=== PATIENT | male | born 1965 | race American Indian/Alaskan Native ===

== ENCOUNTER 2017-01-23 11:03 | Emergency (ER) | payer MEDICARE ==
[2017-01-23 11:29] VITALS: BP 115/73
--- NOTE | 2017-01-23 11:45 | Emergency Department Report ---
ED Lower Extremity HPI - General Chief Complaint: Extremity Injury, Lower Stated Complaint: FOOT SWOLLEN, CANNOT WALK Time Seen by Provider: 01/23/17 11:36 Source: patient Mode of arrival: Wheelchair Limitations: No Limitations - History of Present Illness MD Complaint: ankle injury, foot injury -: Sudden, During the night, Last night Injury: Ankle: Left Type of Injury: eversion Severity scale (0 -10): 8 Improves With: NSAID Worsens With: weight bearing, movement, palpation - Related Data Home Medications Medication Instructions Recorded Confirmed Last Taken Calcium Acetate [Calcium Acetate] 1 cap PO DAILY 02/07/14 04/01/14 12/22/13 Carvedilol [Coreg] 12.5 mg PO BID 02/12/14 04/01/14 03/31/14 10:00 Cholecalciferol (Vitamin D3) 1 cap PO BID 03/22/14 03/22/14 Unknown [Vitamin D] Sevelamer Carbonate [Renvela] 4 tab PO AC 03/22/14 03/22/14 Unknown cloNIDine [Catapres] 0.2 mg PO BID 03/22/14 04/01/14 03/31/14 22:00 Previous Rx's Medication Instructions Recorded Last Taken Type Acetaminophen/Codeine [Tylenol #3] 1 tab PO Q4HR PRN #30 tablet 04/01/14 Unknown Rx HYDROcodone/APAP 5-325 [[place] 1 each PO Q4HR PRN #12 tablet 01/23/17 Unknown Rx 5/325] Allergies Allergy/AdvReac Type Severity Reaction Status Date / Time No Known Allergies Allergy Verified 02/07/14 10:39 ED Review of Systems ROS: Stated complaint: FOOT SWOLLEN, CANNOT WALK Other details as noted in HPI Constitutional: denies: chills, fever Eyes: denies: eye pain, eye discharge, vision change ENT: denies: ear pain, throat pain Respiratory: denies: cough, shortness of breath, wheezing Cardiovascular: denies: chest pain, palpitations Endocrine: no symptoms reported Gastrointestinal: denies: abdominal pain, nausea, diarrhea Musculoskeletal: joint swelling, arthralgia. denies: back pain Skin: denies: rash, lesions Neurological: denies: headache, weakness Hematological/Lymphatic: denies: easy bruising ED Past Medical Hx - Past Medical History Previous Medical History?: Yes Hx Hypertension: Yes (4YRS) Hx Diabetes: Yes Hx GERD: Yes Hx Renal Disease: Yes (Tue, Thrus, Sat dialysis) Hx Asthma: No - Surgical History Past Surgical History?: Yes Additional Surgical History: Graft in arm, Appendix - Social History Smoking Status: Never Smoker Substance Use Type: None - Medications Home Medications: Home Medications Medication Instructions Recorded Confirmed Last Taken Type Calcium Acetate [Calcium Acetate] 1 cap PO DAILY 02/07/14 04/01/14 12/22/13 History Carvedilol [Coreg] 12.5 mg PO BID 02/12/14 04/01/14 03/31/14 10:00 History Cholecalciferol (Vitamin D3) 1 cap PO BID 03/22/14 03/22/14 Unknown History [Vitamin D] Sevelamer Carbonate [Renvela] 4 tab PO AC 03/22/14 03/22/14 Unknown History cloNIDine [Catapres] 0.2 mg PO BID 03/22/14 04/01/14 03/31/14 22:00 History Acetaminophen/Codeine [Tylenol #3] 1 tab PO Q4HR PRN #30 tablet 04/01/14 Unknown Rx HYDROcodone/APAP 5-325 [[place] 1 each PO Q4HR PRN #12 tablet 01/23/17 Unknown Rx 5/325] ED Physical Exam - General Limitations: No Limitations General appearance: alert, in no apparent distress - Head Head exam: Present: atraumatic, normocephalic - Eye Eye exam: Present: normal appearance - ENT ENT exam: Present: mucous membranes moist - Neck Neck exam: Present: normal inspection - Respiratory Respiratory exam: Present: normal lung sounds bilaterally. Absent: respiratory distress - Cardiovascular Cardiovascular Exam: Present: regular rate - Expanded Lower Extremity Exam Left Ankle exam: Present: tenderness, swelling, ecchymosis Foot/Toe exam: Absent: tenderness, swelling Neuro vascular tendon exam: Present: no vascular compromise. Absent: pulse deficit, abnormal cap refill Gait: Positive: observed and limited by pain 1 - tenderness, no swelling noted 2 - tenderness - Back Exam Back exam: Present: normal inspection - Neurological Exam Neurological exam: Present: alert, oriented X3 - Skin Skin exam: Present: warm, dry, intact ED Course Vital Signs 01/23/17 11:23 Temperature 98.7 F Pulse Rate 90 Respiratory 18 Rate Blood Pressure 115/73 O2 Sat by Pulse 100 Oximetry - Reevaluation(s) Reevaluation #1: 01/23/17 13:43 Patient ambulatory with walking boot. As a note, only 1 prescription of hydrocodone was dispensed to patient. Critical care attestation.: If time is entered above; I have spent that time in minutes in the direct care of this critically ill patient, excluding procedure time. ED Disposition Clinical Impression: Fracture of fifth metatarsal bone of left foot Disposition: DISCHARGED TO HOME OR SELFCARE Is pt being admited?: No Condition: Stable Instructions: Foot Fracture in Adults (ED) Prescriptions: HYDROcodone/APAP 5-325 [[place] 5/325] 1 each PO Q4HR PRN #12 tablet PRN Reason: Pain Referrals: BELLO JACOB MD [Primary Care Provider] - 3-5 Days MICHAEL LECHUGA MD [Staff Physician] - 3-5 Days
--- NOTE | 2017-01-23 12:13 | XRay Report ---
Left ankle 2 views: History: Injury and pain. Findings: No articular abnormality. No fracture or dislocation. Calcification of tibial vessels. Suspicion of fracture of the cuboid bone. Impression: Suspicion of fracture of the cuboid bone. Oblique radiographs recommended for further evaluation.
[2017-01-23] MEDS ORDERED: NORCO 5/325 PO ONE (12:15)
--- NOTE | 2017-01-23 12:45 | XRay Report ---
Oblique radiograph of the left ankle: Findings: There is fracture noted in the base of 5th metatarsal of left foot. There is also noted cortical irregularity of the articular surface of left cuboid suggestive incomplete fracture. Impression: Findings as detailed above.
== END 2017-01-23 13:52 | disposition home or self-care (01) ==
LOC: ED 11:03
DX: S92.352A Displaced fracture of fifth metatarsal bone, left foot, initial encounter for closed fracture (principal); X58.XXXA Exposure to other specified factors, initial encounter; Y93.9 Activity, unspecified; Y92.9 Unspecified place or not applicable; Y99.9 Unspecified external cause status; I10 Essential (primary) hypertension; E11.9 Type 2 diabetes mellitus without complications; K21.9 Gastro-esophageal reflux disease without esophagitis
CPT/HCPCS: 99283

== ENCOUNTER 2017-02-04 12:24 | Emergency (ER) | payer MEDICARE ==
[2017-02-04 13:38] VITALS: BP 150/84
--- NOTE | 2017-02-04 16:41 | Emergency Department Report ---
Entered by ALLEGRA HANSEN, acting as scribe for MARA SUBRAMANIAN PA. ED General Adult HPI - General Chief complaint: Extremity Injury, Lower Stated complaint: WRONG BOOT POST EMERGENCY VISIT Time Seen by Provider: 02/04/17 15:15 Source: patient Mode of arrival: Ambulatory Limitations: No Limitations - History of Present Illness Initial comments: 51 year old male presents to the ED today requesting to exchange walking boot for his left foot injury. Patient was seen in this ED on 01/23/2017 and diagnosed with fracture of fifth metatarsal bone of left foot. Patient reports he was seen by Dr. Linda Mccullough on 01/28/2017 and informed that he needed a walking boot, pneumatic, with or without joints, with or without interface material, prefabricated, includes fittings and adjustment ([id number]). Patient states Dr. Mccullough told patient boot could not be supplied during appointment because Medicare would not cover expense. Patient states Medicare told him to return to this ED and request to exchange boot. Patient reports pain to left foot but notes no acute changes. Denies fever, chills, abdominal pain, nausea, vomiting, chest pain, and shortness of breath. Location: left (foot pain) Consistency: constant Associated Symptoms: other (no acute changes to left foot). denies: chest pain , fever/chills, nausea/vomiting, shortness of breath - Related Data Home Medications Medication Instructions Recorded Confirmed Last Taken Calcium Acetate [Calcium Acetate] 1 cap PO DAILY 02/07/14 04/01/14 12/22/13 Carvedilol [Coreg] 12.5 mg PO BID 02/12/14 04/01/14 03/31/14 10:00 Cholecalciferol (Vitamin D3) 1 cap PO BID 03/22/14 03/22/14 Unknown [Vitamin D] Sevelamer Carbonate [Renvela] 4 tab PO AC 03/22/14 03/22/14 Unknown cloNIDine [Catapres] 0.2 mg PO BID 03/22/14 04/01/14 03/31/14 22:00 Previous Rx's Medication Instructions Recorded Last Taken Type Acetaminophen/Codeine [Tylenol #3] 1 tab PO Q4HR PRN #30 tablet 04/01/14 Unknown Rx HYDROcodone/APAP 5-325 [[place] 1 each PO Q4HR PRN #12 tablet 01/23/17 Unknown Rx 5/325] traMADol [Ultram 50 MG tab] 50 mg PO Q6HR PRN #20 tablet 02/04/17 Unknown Rx Allergies Allergy/AdvReac Type Severity Reaction Status Date / Time No Known Allergies Allergy Verified 02/07/14 10:39 ED Review of Systems Comment: All other systems reviewed and negative Constitutional: denies: chills, fever Respiratory: denies: shortness of breath Cardiovascular: denies: chest pain Gastrointestinal: denies: abdominal pain, nausea, vomiting Musculoskeletal: other (left small toe pain. No acute changes since last visit) ED Past Medical Hx - Past Medical History Hx Hypertension: Yes (4YRS) Hx Diabetes: Yes Hx GERD: Yes Hx Renal Disease: Yes (Tue, Thrus, Sat dialysis) Hx Asthma: No - Surgical History Additional Surgical History: Graft in arm, Appendix - Social History Smoking Status: Never Smoker Substance Use Type: None - Medications Home Medications: Home Medications Medication Instructions Recorded Confirmed Last Taken Type Calcium Acetate [Calcium Acetate] 1 cap PO DAILY 02/07/14 04/01/14 12/22/13 History Carvedilol [Coreg] 12.5 mg PO BID 02/12/14 04/01/14 03/31/14 10:00 History Cholecalciferol (Vitamin D3) 1 cap PO BID 03/22/14 03/22/14 Unknown History [Vitamin D] Sevelamer Carbonate [Renvela] 4 tab PO AC 03/22/14 03/22/14 Unknown History cloNIDine [Catapres] 0.2 mg PO BID 03/22/14 04/01/14 03/31/14 22:00 History Acetaminophen/Codeine [Tylenol #3] 1 tab PO Q4HR PRN #30 tablet 04/01/14 Unknown Rx HYDROcodone/APAP 5-325 [[place] 1 each PO Q4HR PRN #12 tablet 01/23/17 Unknown Rx 5/325] traMADol [Ultram 50 MG tab] 50 mg PO Q6HR PRN #20 tablet 02/04/17 Unknown Rx ED Physical Exam - General Limitations: No Limitations - Other Other exam information: GENERAL: The patient is well-developed and well-nourished. Patient is in NAD. HEAD: Normocephalic. Atraumatic. CHEST/LUNGS: Clear to auscultation throughout. HEART/CARDIOVASCULAR: Regular rate and rhythm. Positive for murmu ABDOMEN: Abdomen is soft, nontender. Bowel sounds normoactive. No guarding or rebound tenderness. LEFT FOOT: Tenderness to palpation of base of 5th metacarpal. No deformity, edema or echymosis noted. Normal sensation. Peripheral pulses intact. Capillary refill less than 2 seconds. NEURO: Alert and oriented x 3. ED Course Vital Signs 02/04/17 12:45 Temperature 98 F Pulse Rate 71 Respiratory 18 Rate Blood Pressure 150/84 O2 Sat by Pulse 100 Oximetry ED Medical Decision Making - Lab Data Vital Signs 02/04/17 12:45 Temperature 98 F Pulse Rate 71 Respiratory 18 Rate Blood Pressure 150/84 O2 Sat by Pulse 100 Oximetry - Medical Decision Making 51-year-old male presents today for a change in orthopedic boot post orthopedic follow-up. Patient was told by Dr. Mccullough that Medicare would not cover the second boot. Explained to patient that the plate ordered by Dr. Wilson is not available at this ER. Patient expressed understanding. Patient has been provided with a referral for Dr. Rai. Patient is in no acute distress at this time. He will be discharged home and is encouraged to follow up with a primary care provider. He will be sent home on tramadol and is encouraged to return to the emergency room for any worsening symptoms. ED Disposition Clinical Impression: Fracture of fifth metatarsal bone of left foot Qualifiers: Encounter type: subsequent encounter Fracture type: closed Fracture alignment: nondisplaced Fracture healing: with routine healing Qualified Code(s): S92.355D - Nondisplaced fracture of fifth metatarsal bone, left foot, subsequent encounter for fracture with routine healing Disposition: DISCHARGED TO HOME OR SELFCARE Is pt being admited?: No Does the pt Need Aspirin: No Condition: Stable Instructions: Toe Fracture (ED) Additional Instructions: Follow-up with primary care provider and orthopedic. Return to the emergency department if symptoms worsen. Prescriptions: traMADol [Ultram 50 MG tab] 50 mg PO Q6HR PRN #20 tablet PRN Reason: Pain Referrals: PRIMARY MD ALVARO [Primary Care Provider] - 3-5 Days KIMBERLY RAI MD [Staff Physician] - 3-5 Days Forms: Work/School Release Form(ED) Time of Disposition: 16:39 This documentation as recorded by the JADE paul REBEKAH,accurately reflects the service I personally performed and the decisions made by ,MARA SUBRAMANIAN PA.
== END 2017-02-04 16:47 | disposition home or self-care (01) ==
LOC: ED 12:24
DX: S92.355D Nondisplaced fracture of fifth metatarsal bone, left foot, subsequent encounter for fracture with routine healing (principal); I10 Essential (primary) hypertension; E11.9 Type 2 diabetes mellitus without complications; K21.9 Gastro-esophageal reflux disease without esophagitis; X58.XXXD Exposure to other specified factors, subsequent encounter
CPT/HCPCS: 99282

== ENCOUNTER 2017-08-01 18:18 | Emergency (ER) | payer MEDICARE ==
[2017-08-01 19:02] LABS: Albumin 4.2 g/dL (3.9-5); Albumin/Globulin Ratio 1.1 %; Bilirubin,Total 0.5 mg/dL (0.1-1.2); Calcium 9.6 mg/dL (8.4-10.2)
[2017-08-01 19:03] LABS: Chloride 92.5 mmol/L (98-107); Potassium 5.5 mmol/L (3.6-5.0)
[2017-08-01] MEDS ORDERED: CATAPRES PO ONE (22:15)
[2017-08-01] MEDS ORDERED: CATAPRES ONE (22:17)
--- NOTE | 2017-08-02 03:58 | ED Elopement Review ---
ED Pt Elopement review - Results review Lab results: Laboratory Tests 08/01/17 Unknown Sodium 139 Potassium 5.5 H Chloride 92.5 L Carbon Dioxide 30 Anion Gap 22 BUN 69 H Creatinine 13.1 H Estimated GFR 5 BUN/Creatinine Ratio 5 Glucose 104 H Calcium 9.6 Total Bilirubin 0.50 AST 19 ALT 26 Alkaline Phosphatase 98 Total Protein 8.0 Albumin 4.2 Albumin/Globulin Ratio 1.1 Patient has mild elevation of potassium preferred to giving Kayexalate and patient has elevated blood pressure unchanged after clonidine. EKG does show some peaked T waves. As per triage staff Patient left the ED department prior to evaluation and plans to go to his dialysis today. His elevated blood pressure and potassium are likely to improve with his scheduled dialysis. Shoulder x-ray reviewed and no fracture noted - Call Back decision Pt Call Back Decision: No action required
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
[2017-08-02 11:26] VITALS: BP 203/104
== END 2017-08-02 03:40 | disposition left against medical advice (07) ==
LOC: ED 18:18
DX: M25.512 Pain in left shoulder (principal); Z53.21 Procedure and treatment not carried out due to patient leaving prior to being seen by health care provider
CPT/HCPCS: 36415; 80048; 80053; 93005; 93010

== ENCOUNTER 2017-08-02 11:51 | Emergency (ER) | payer OTHER, MEDICARE ==
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
[2017-08-02 15:57] LABS: Calcium 9.8 mg/dL (8.4-10.2); Potassium 4.8 mmol/L (3.6-5.0)
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
[2017-08-02 18:00] VITALS: BP 128/80
== END 2017-08-02 17:56 | disposition home or self-care (01) ==
LOC: ED 11:51
DX: S46.912A Strain of unspecified muscle, fascia and tendon at shoulder and upper arm level, left arm, initial encounter (principal); I10 Essential (primary) hypertension; E11.9 Type 2 diabetes mellitus without complications; K21.9 Gastro-esophageal reflux disease without esophagitis; N28.9 Disorder of kidney and ureter, unspecified; V43.52XA Car driver injured in collision with other type car in traffic accident, initial encounter; Y93.9 Activity, unspecified; Y99.9 Unspecified external cause status; Y92.410 Unspecified street and highway as the place of occurrence of the external cause
CPT/HCPCS: 36415; 80048; 93005; 93010; 99283

== ENCOUNTER 2019-05-22 01:42 | Inpatient (IN) | payer MEDICARE ==
[2019-05-22 02:53] LABS: Basophils % (Auto) 0.4 % (0.0-1.8); Eosinophils % (Auto) 0.3 % (0.0-4.3); Hemoglobin 12.8 gm/dl (11.8-15.2); Lymphocytes # (Auto) 1.3 K/mm3 (1.2-5.4); Lymphocytes % (Auto) 11.2 % (13.4-35.0); Mean Corpuscular HGB Conc 33 % (32-34); Mean Corpuscular Volume 98 fl (84-94); Monocytes # (Auto) 1.2 K/mm3 (0.0-0.8); Monocytes % (Auto) 10.2 % (0.0-7.3); Platelet Count 203 K/mm3 (140-440); Red Blood Count 3.98 M/mm3 (3.65-5.03); Red Cell Distribution Width 16.5 % (13.2-15.2)
[2019-05-22 03:03] LABS: INR 1.08 (0.87-1.13)
[2019-05-22 03:18] LABS: Albumin 3.8 g/dL (3.9-5)
--- NOTE | 2019-05-22 03:47 | XRay Report ---
RIGHT KNEE 3 VIEWS INDICATION / CLINICAL INFORMATION: fall with leg pain. COMPARISON: None available. FINDINGS: Vascular calcification. No other significant abnormality. Signer Name: Akhil Gibbs MD FACChing Signed: 05/22/2019 3:43 AM Workstation Name: [id number]
--- NOTE | 2019-05-22 03:48 | XRay Report ---
RIGHT HIP 2 VIEWS INDICATION / CLINICAL INFORMATION: fall with leg pain. COMPARISON: None available. FINDINGS: No significant skeletal abnormality. Signer Name: Akhil Gibbs MD FACR Signed: 05/22/2019 3:43 AM Workstation Name: [employer]
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
[2019-05-22] MEDS ORDERED: PERCOCET 5/325 PO ONE (03:56)
[2019-05-22] MEDS ORDERED: PERCOCET 5/325 ONE (03:57)
--- NOTE | 2019-05-22 05:04 | Emergency Department Report ---
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 Patient states while ambulating his left leg felt like he gave out causing him to fall injuring his right ankle and foot. Patient complains of pain from his hip all the way down to his right foot. This pain has been making it difficult for him to ambulate he fell 2 more times due to inability to put pressure on the right leg. Patient denies headache, chest pain, shortness of breath, nausea, vomiting, diaphoresis, back pain, or abdominal pain. He states he is scheduled for surgery of the "valve of his left leg" in May. Patient takes aspirin and Plavix but does not take any other blood thinners. - Related Data Home Medications Medication Instructions Recorded Confirmed Last Taken No Known Home Medications [No 12/05/18 12/05/18 Unknown Reported Home Medications] Allergies Allergy/AdvReac Type Severity Reaction Status Date / Time No Known Allergies Allergy Verified 02/07/14 10:39 ED Review of Systems ROS: Stated complaint: WEAKNESS,FALL/RT FOOT PAIN Other details as noted in HPI Comment: All other systems reviewed and negative ED Past Medical Hx - Past Medical History Previous Medical History?: Yes Hx Hypertension: Yes Hx Heart Attack/AMI: No Hx Diabetes: Yes Hx GERD: Yes Hx Renal Disease: Yes (Tue, Thrus, Sat dialysis) Hx Asthma: No Additional medical history: Aortic Stenosis. hear murmur. PAD - Surgical History Past Surgical History?: Yes Hx Coronary Stent: Yes (X1) Hx Cholecystectomy: Yes Additional Surgical History: Graft in arm, Appendix - Social History Smoking Status: Never Smoker Substance Use Type: None - Medications Home Medications: Home Medications Medication Instructions Recorded Confirmed Last Taken Type No Known Home Medications [No 12/05/18 12/05/18 Unknown History Reported Home Medications] ED Physical Exam - General Limitations: No Limitations - Other Other exam information: General: No limitations, patient is alert in no acute distress Head exam: Atraumatic, normocephalic Eyes exam: Normal appearance ENT: Moist mucous membrane Neck exam: Normal inspection, full range of motion, no meningismus nontender Respiratory exam: Clear to auscultation bilateral, no wheezes, rales, crackles Cardiovascular: Normal rate and rhythm, normal heart sounds Abdomen: Soft, nondistended, and nontender, with normal bowel sounds, no rebound, or guarding Extremity: Patient has palpable DP pulses bilaterally. Full range of motion of left leg without weakness, numbness, or pain. Patient has pain with movement of right leg greatest at the ankle and toes. Tenderness to medial lateral ankle. Abrasion noted to anterior right knee. No pain to palpation of the hip. Back: Normal Inspection, full range of motion, no tenderness Neurologic: Alert, oriented x3, cranial nerves intact, no motor or sensory deficit Psychiatric: normal affect, normal mood Skin: Warm, dry, intact ED Course Vital Signs 05/22/19 05/22/19 01:56 02:45 Temperature 98.6 F Pulse Rate 85 Respiratory 10 L 10 L Rate Blood Pressure 115/52 O2 Sat by Pulse 96 96 Oximetry - Consultations Consultation #1: 05/22/19 05:12 Dr Dayan vasques for sunshine, states LBBB can occur after valve replacement ED Medical Decision Making - Lab Data Result diagrams: 05/22/19 02:26 05/22/19 02:29 Lab Results 05/22/19 05/22/19 05/22/19 Range/Units 02:26 02:29 02:29 WBC 12.0 H (4.5-11.0) K/mm3 RBC 3.98 (3.65-5.03) M/mm3 Hgb 12.8 (11.8-15.2) gm/dl Hct 39.0 (35.5-45.6) % MCV 98 H (84-94) fl MCH 32 (28-32) pg MCHC 33 (32-34) % RDW 16.5 H (13.2-15.2) % Plt Count 203 (140-440) K/mm3 Lymph % (Auto) 11.2 L (13.4-35.0) % [place] % (Auto) 10.2 H (0.0-7.3) % Eos % (Auto) 0.3 (0.0-4.3) % Baso % (Auto) 0.4 (0.0-1.8) % Lymph # 1.3 (1.2-5.4) K/mm3 [place] # 1.2 H (0.0-0.8) K/mm3 Eos # 0.0 (0.0-0.4) K/mm3 Baso # 0.0 (0.0-0.1) K/mm3 Seg Neutrophils % 77.9 H (40.0-70.0) % Seg Neutrophils # 9.3 H (1.8-7.7) K/mm3 PT 13.7 (12.2-14.9) Sec. INR 1.08 (0.87-1.13) APTT 25.0 (24.2-36.6) Sec. Sodium 140 (137-145) mmol/L Potassium 4.2 (3.6-5.0) mmol/L Chloride 94.6 L (98-107) mmol/L Carbon Dioxide 29 (22-30) mmol/L Anion Gap 21 mmol/L BUN 57 H (9-20) mg/dL Creatinine 14.0 H (0.8-1.5) mg/dL Estimated GFR 4 ml/min BUN/Creatinine Ratio 4 % Glucose 136 H (75-100) mg/dL POC Glucose (70-105) Calcium 9.0 (8.4-10.2) mg/dL Total Bilirubin 0.40 (0.1-1.2) mg/dL AST 15 (5-40) units/L ALT 18 (7-56) units/L Alkaline Phosphatase 105 (35-129) units/L Troponin T 0.042 H (0.00-0.029) ng/mL Total Protein 7.8 (6.3-8.2) g/dL Albumin 3.8 L (3.9-5) g/dL Albumin/Globulin Ratio 1.0 % Triglycerides 131 (2-149) mg/dL LDL Cholesterol Direct 82 (50-130) mg/dL HDL Cholesterol 39 L (40-59) mg/dL // Range/Units 02:56 WBC (4.5-11.0) K/mm3 RBC (3.65-5.03) M/mm3 Hgb (11.8-15.2) gm/dl Hct (35.5-45.6) % MCV (84-94) fl MCH (28-32) pg MCHC (32-34) % RDW (13.2-15.2) % Plt Count (140-440) K/mm3 Lymph % (Auto) (13.4-35.0) % [place] % (Auto) (0.0-7.3) % Eos % (Auto) (0.0-4.3) % Baso % (Auto) (0.0-1.8) % Lymph # (1.2-5.4) K/mm3 [place] # (0.0-0.8) K/mm3 Eos # (0.0-0.4) K/mm3 Baso # (0.0-0.1) K/mm3 Seg Neutrophils % (40.0-70.0) % Seg Neutrophils # (1.8-7.7) K/mm3 PT (12.2-14.9) Sec. INR (0.87-1.13) APTT (24.2-36.6) Sec. Sodium (137-145) mmol/L Potassium (3.6-5.0) mmol/L Chloride (98-107) mmol/L Carbon Dioxide (22-30) mmol/L Anion Gap mmol/L BUN (9-20) mg/dL Creatinine (0.8-1.5) mg/dL Estimated GFR ml/min BUN/Creatinine Ratio % Glucose (75-100) mg/dL POC Glucose 146 H (70-105) Calcium (8.4-10.2) mg/dL Total Bilirubin (0.1-1.2) mg/dL AST (5-40) units/L ALT (7-56) units/L Alkaline Phosphatase (35-129) units/L Troponin T (0.00-0.029) ng/mL Total Protein (6.3-8.2) g/dL Albumin (3.9-5) g/dL Albumin/Globulin Ratio % Triglycerides (2-149) mg/dL LDL Cholesterol Direct (50-130) mg/dL HDL Cholesterol (40-59) mg/dL - EKG Data -: EKG Interpreted by Me (LBBB) EKG shows normal: sinus rhythm, axis (qrs -34), QRS complexes (qrsd 168), ST-T waves (no stemi) - EKG Data When compared to previous EKG there are: changes noted - Radiology Data Radiology results: report reviewed RIGHT KNEE 3 VIEWS INDICATION / CLINICAL INFORMATION: fall with leg pain. COMPARISON: None available. FINDINGS: Vascular calcification. No other si gnificant abnormality. RIGHT HIP 2 VIEWS INDICATION / CLINICAL INFORMATION: fall with leg pain. COMPARISON: None available. FINDINGS: No significant skeletal abnormality. RIGHT ANKLE 3 VIEWS INDICATION / CLINICAL INFORMATION: fall with leg pain. COMPARISON: None available. FINDINGS: Vascular calcification is present. Old healed fracture of the syndesmosis or distal fibula. No other significant skeletal abnormality. - Medical Decision Making Contrary to x-ray findings of the right ankle patient denies previous ankle injury or fracture. Patient has a left bundle branch block which is new since visit here in November which required transfer for critical aortic stenosis and single-vessel CAD. Discussed with cardiology (see note) Troponin is elevated and similar to previous baseline pain pain improved after meds splint for ankle stabilization and crutches vs walker. - Differential Diagnosis fracture, contusion, sprain, arrhythmia, Critical Care Time: No Critical care attestation.: If time is entered above; I have spent that time in minutes in the direct care of this critically ill patient, excluding procedure time. ED Disposition Clinical Impression: Fall, ESRD (end stage renal disease), Right ankle sprain, New onset left bundle branch block (LBBB), History of aortic valve replacement, H/O heart artery stent Disposition: OP ADMIT IP TO THIS HOSP Is pt being admited?: Yes Condition: Stable Time of Disposition: 05:32 (Dr Guerra)
--- NOTE | 2019-05-22 05:28 | XRay Report ---
RIGHT FOOT 3 VIEWS INDICATION / CLINICAL INFORMATION: fall and pain. COMPARISON: None available. FINDINGS: Vascular calcification. No other significant abnormality. Signer Name: Akhil Gibbs MD FACChing Signed: 05/22/2019 5:23 AM Workstation Name: [email or web address]
[2019-05-22 05:54] LABS: Chol/HDL Ratio 3.3 %
--- NOTE | 2019-05-22 09:04 | History and Physical Report ---
History of Present Illness Date of examination: 05/22/19 Date of admission: 05/22/19 05:33 Chief complaint: Frequent Falls at home of one day duration. History of present illness: Beltran Panchal is a 53 y/o AA male with a past medical history significant for ESRF on HD (T, TH, S), PAD, (s/p AVR in 2018), CAD (s/p STENT in 2018), DM, diabetic peripheral neuropathy, and HTN. He presented to the ED after having frequent falls at home. He reported that his Left leg "gave way" and he fell. This happened repeatedly throughout the evening 3 times at 6 pm, 8 pm and midnight. He also complained of having pain in his right knee and ankle after the falls. He was having difficulty walking and sought medical evaluation in the ED. Radiograph imaging was obtained in the ED of the foot, ankle, knee, and hip showing vascular calcifications of the R foot, R ankle, and R knee. With old healed fracture of the R ankle and no significant abnormality of the R hip. Xrays showed no acute fractures or dislocations. In the ED, he was noted to have a new Left BBB and mildly elevated troponin. He denies chest pain but states he does have SOB but has had this for some time. Cardiology was consulted. He was admitted for further evaluation. Past History Past Medical History: CAD, diabetes, dialysis, ESRD, hypertension, PVD, renal failure, other (diabetic peripheral neuropathy) Past Surgical History: valve replacement (aortic), PTCA, Other Social history: single. denies: smoking, alcohol abuse, IV drug use Family history: denies: no significant family history Medications and Allergies Allergies Allergy/AdvReac Type Severity Reaction Status Date / Time No Known Allergies Allergy Verified 02/07/14 10:39 Home Medications Medication Instructions Recorded Confirmed Last Taken Type AtorvaSTATin [Lipitor] 40 mg PO QHS 05/22/19 05/22/19 Unknown History Clopidogrel [Plavix] 75 mg PO QDAY 05/22/19 05/22/19 Unknown History Gabapentin [Neurontin] 100 mg PO TID 05/22/19 05/22/19 Unknown History Linagliptin [Tradjenta] 5 mg PO QDAY 05/22/19 05/22/19 Unknown History hydrALAZINE [Apresoline] 25 mg PO TID 05/22/19 05/22/19 Unknown History Active Meds: Review of systems Constitutional: Well Nourished and Well developed. Head: NC/ AT Eyes: Denies any visual impairments. No discharge from the eyes Nose: Denies any rhinorrhea or epistaxis Throats: Denies any post nasal drainage. Ears: Denies any hearing deficits Cardiovascular system: Denies any chest pain, has shortness of breath. Denies orthopnea, paroxysmal nocturnal dyspnea, or palpitation. Respiratory system: Denies any cough, difficulty breathing, wheezing, pleuritic chest pain, Gastrointestinal system: Denies any abdominal pain, nausea vomiting, hematemesis or melena. Neurological system: Denies any headache, slurred speech, facial droop, lateralizing weakness Genitalia system: Denies any dysuria, urinary frequency or urgency, urethral discharge Skin: No rashes, hyperpigmented spots. Hematological: Denies any cervical tenderness hemorrhages or petechia. Immunological: Denies any multiple septic spots, Lymphatic: Denies any generalized lymphadenopathy. Endocrine: Denies any polyuria, polydipsia, polyphagia. No heat or cold intolerance. Musculoskeletal system: pain in right ankle and right knee. Psych: No visual, tactile, auditory or hallucination Exam - Physical Exam Narrative exam: Constitutional: Well-nourished well-developed. In no distress Head: Normocephalic atraumatic Eyes: Pupils are equal round and reactive to light Nose: No enlarged turbinates, no septal deviation. Mouth: Moist mucous membranes. Neck: Supple no thyromegaly. No bruit. No JVD Heart: Regular rate and rhythm, S1-S2 normal. No rubs murmurs or gallop Lungs: Clear to auscultation bilaterally. no rales or rhonchi Abdomen: Soft, nontender. Bowel sound are present. Extremities: No edema, no cyanosis, no clubbing. Neuro: Alert oriented Oriented x3. No focal sensory or motor deficit. Skin: No rashes or hyperpigmented spots Musculoskeletal system: Bruise on the right knee and splint present on right ankle. Hematological: No petechia or subcutanous hemorrhages. Immunological: No multiple septic spots on the skin Lymphatic: No generalized lymphadenopathy Psychiatry: Euthymic. Calm. - Constitutional Vitals: Temp Pulse Resp BP Pulse Ox 98.6 F 78 18 135/62 100 05/22/19 01:56 05/22/19 07:40 05/22/19 07:40 05/22/19 07:40 05/22/19 07:40 Results - Labs CBC & Chem 7: 05/23/19 07:11 05/22/19 02:29 Labs: Abnormal lab results 05/22/19 05/22/19 05/22/19 Range/Units 02:26 02:29 02:56 WBC 12.0 H (4.5-11.0) K/mm3 MCV 98 H (84-94) fl RDW 16.5 H (13.2-15.2) % Lymph % (Auto) 11.2 L (13.4-35.0) % [place] % (Auto) 10.2 H (0.0-7.3) % [place] # 1.2 H (0.0-0.8) K/mm3 Seg Neutrophils % 77.9 H (40.0-70.0) % Seg Neutrophils # 9.3 H (1.8-7.7) K/mm3 Chloride 94.6 L (98-107) mmol/L BUN 57 H (9-20) mg/dL Creatinine 14.0 H (0.8-1.5) mg/dL Glucose 136 H (75-100) mg/dL POC Glucose 146 H (70-105) Troponin T 0.042 H (0.00-0.029) ng/mL Albumin 3.8 L (3.9-5) g/dL HDL Cholesterol 39 L (40-59) mg/dL Assessment and Plan Beltran Panchal is a 53 y/o AA male with a past medical history significant for ESRF on HD (T, TH, S), PAD, (s/p AVR in 2018), CAD (s/p STENT in 2018), DM, diabetic peripheral neuropathy, and HTN. He presented to the ED after having frequent falls at home. He reported that his Left leg "gave way" and he fell. This happened repeatedly throughout the evening 3 times at 6 pm, 8 pm and midnight. He also complained of having pain in his right knee and ankle after the falls. He was having difficulty walking and sought medical evaluation in the ED. Radiograph imaging was obtained in the ED of the foot, ankle, knee, and hip showing vascular calcifications of the R foot, R ankle, and R knee. With old healed fracture of the R ankle and no significant abnormality of the R hip. Xrays showed no acute fractures or dislocations. In the ED, he was noted to have a new Left BBB and mildly elevated troponin. He denies chest pain but states he does have SOB but has had this for some time. Cardiology was consulted. He was admitted for further evaluation. Impression: - Frequent falls at home of unknown etiology. Could be cardiac in origin. Cardiology consult obtain. - Right ankle strain with inability stank on it Splint in place Pain control Ortho consult - New onset Left BBB serial Jorge Cardiology consulted. -History of aortic stenosis- status post AVR (12/12) -History of CAD- status post STENT (12/12) On plavix, statins. Holding BB because of BBB. - ESRF on HD Nephrology consulted for HD. - elevated troponin- possible secondary to ESRD as he has no CP. On SQ heparin Serial Jorge. -DM Continue SSI and home medications. Consist carbohydrate diet HA1C DVT and GI prophylaxis. CODE STATUS: Patient is a FULL CODE Time spent over 35 minutes in direct patient care in review of diagnostic data as well as explaining plan of care to patient.
[2019-05-22] MEDS ORDERED: D50W (25GM) Syringe IV PRN (09:19)
[2019-05-22] MEDS ORDERED: PROTONIX IV SCH (10:00)
[2019-05-22] MEDS ORDERED: PROTONIX PO ONE (11:00)
[2019-05-22] MEDS ORDERED: PLAVIX ONE (11:00)
[2019-05-22] MEDS ORDERED: HEPARIN ONE (11:01)
[2019-05-22] MEDS: HEPARIN SUB-Q SCH ×2 (11:03→21:33)
--- NOTE | 2019-05-22 11:06 | XRay Report ---
CHEST 1 VIEW INDICATION: Shortness of breath. COMPARISON: None FINDINGS: Support devices: None. Heart: Within normal limits. Lungs/Pleura: No acute air space or interstitial disease. Additional findings: None. IMPRESSION: No acute findings. Signer Name: Artemio Baldwin Jr, MD Signed: 05/22/2019 11:02 AM Workstation Name: [id number]
[2019-05-22] MEDS: TRADJENTA PO SCH (11:18)
[2019-05-22] MEDS: PLAVIX PO SCH (11:18)
[2019-05-22] MEDS: HumaLOG SUB-Q SCH ×3 (11:19→21:33)
[2019-05-22] MEDS ORDERED: NACL 0.9% 100 ML IV PRN (12:34)
--- NOTE | 2019-05-22 13:21 | Consultation ---
History of Present Illness Consult date: 05/22/19 Consult reason: other (LBBB) History of present illness: Patient is a 53 year old male with a history of severe aortic stenosis and single vessel CAD. Patient was referred for CTS evaluation and was considered a poor candidate for open cardiac surgery. Instead, patient underwent PCI of the LAD using drug eluting stents and trans-catheter aortic valve replacement. Patient is on antiplatelet therapy with plavix and aspirin. Post TAVR patient d eveloped a new bundle branch block. An echocardiogram post surgery reports a normal left ventricular systolic function. Patient was brought to this hospital with right leg and knee pain following a f all. Patient denies loss of consciousness. He reports his legs gave out. He denies chest pain, shortness of breath and palpitations. Blood pressure has remained stable. His ECG is sinus rhythm with a left bundle branch block. Past History Past Medical History: CAD, diabetes, dialysis, ESRD, hypertension, PVD, renal failure, other (diabetic peripheral neuropathy) Past Surgical History: valve replacement (aortic), PTCA, Other Social history: single. denies: smoking, alcohol abuse, IV drug use Family history: denies: no significant family history Medications and Allergies Allergies Allergy/AdvReac Type Severity Reaction Status Date / Time No Known Allergies Allergy Verified 02/07/14 10:39 Home Medications Medication Instructions Recorded Confirmed Last Taken Type AtorvaSTATin [Lipitor] 40 mg PO QHS 05/22/19 05/22/19 Unknown History Clopidogrel [Plavix] 75 mg PO QDAY 05/22/19 05/22/19 Unknown History Gabapentin [Neurontin] 100 mg PO TID 05/22/19 05/22/19 Unknown History Linagliptin [Tradjenta] 5 mg PO QDAY 05/22/19 05/22/19 Unknown History hydrALAZINE [Apresoline] 25 mg PO TID 05/22/19 05/22/19 Unknown History Active Meds: Active Medications Atorvastatin Calcium (Lipitor) 40 mg PO QHS [facility] Clopidogrel Bisulfate (Plavix) 75 mg PO QDAY [facility] Last Admin: 05/22/19 11:18 Dose: 75 mg Documented by: Dextrose (D50w (25gm) Syringe) 50 ml IV PRN PRN PRN Reason: Hypoglycemia Gabapentin (Neurontin) 100 mg PO TID [facility] Heparin Sodium (Porcine) (Heparin) 5,000 unit SUB-Q Q12HR [facility] Last Admin: 05/22/19 11:03 Dose: 5,000 unit Documented by: Hydralazine HCl (Apresoline) 25 mg PO TID [facility] Sodium Chloride (Nacl 0.9%) 100 mls @ 999 mls/hr IV ASH PRN PRN Reason: Hypotension Insulin Human Lispro (Humalog) 0 unit SUB-Q ACHS TIFFANY; Protocol Last Admin: 05/22/19 11:19 Dose: Not Given Documented by: Linagliptin (Tradjenta) 5 mg PO QDAY [facility] Last Admin: 05/22/19 11:18 Dose: Not Given Documented by: Pantoprazole Sodium (Protonix) 40 mg PO DAILY [facility] Physical Examination Vital Signs Temp Pulse Resp BP Pulse Ox 98.6 F 85 10 L 115/52 96 05/22/19 01:56 05/22/19 01:56 05/22/19 01:56 05/22/19 01:56 05/22/19 01:56 General appearance: no acute distress HEENT: Positive: PERRL Cardiac: Positive: Reg Rate and Rhythm Lungs: Positive: Decreased Breath Sounds Results 05/22/19 02:26 05/22/19 02:29 Cardiac Enzymes 05/22/19 Range/Units 02:29 AST 15 (5-40) units/L Coagulation 05/22/19 Range/Units 02:29 PT 13.7 (12.2-14.9) Sec. INR 1.08 (0.87-1.13) APTT 25.0 (24.2-36.6) Sec. Lipids 05/22/19 Range/Units 02:29 Triglycerides 131 (2-149) mg/dL Cholesterol 129 (50-199) mg/dL HDL Cholesterol 39 L (40-59) mg/dL Cholesterol/HDL Ratio 3.30 % CBC 05/22/19 Range/Units 02:26 WBC 12.0 H (4.5-11.0) K/mm3 RBC 3.98 (3.65-5.03) M/mm3 Hgb 12.8 (11.8-15.2) gm/dl Hct 39.0 (35.5-45.6) % Plt Count 203 (140-440) K/mm3 Lymph # 1.3 (1.2-5.4) K/mm3 [place] # 1.2 H (0.0-0.8) K/mm3 Eos # 0.0 (0.0-0.4) K/mm3 Baso # 0.0 (0.0-0.1) K/mm3 Comprehensive Metabolic Panel 05/22/19 Range/Units 02:29 Sodium 140 (137-145) mmol/L Potassium 4.2 (3.6-5.0) mmol/L Chloride 94.6 L (98-107) mmol/L Carbon Dioxide 29 (22-30) mmol/L BUN 57 H (9-20) mg/dL Creatinine 14.0 H (0.8-1.5) mg/dL Glucose 136 H (75-100) mg/dL Calcium 9.0 (8.4-10.2) mg/dL AST 15 (5-40) units/L ALT 18 (7-56) units/L Alkaline Phosphatase 105 (35-129) units/L Total Protein 7.8 (6.3-8.2) g/dL Albumin 3.8 L (3.9-5) g/dL Assessment and Plan Right leg/knee pain following a fall Hx of Valvular heart disease s/p TAVR 11/2018 LBBB, post TAVR Hx of single vessel CAD s/p PCI of the LAD 11/2018 on plavix and aspirin ESRD on dialysis Hypertension Diabetes Hx of Sleep Apnea
[2019-05-22] MEDS: APRESOLINE PO SCH ×2 (13:33→21:32)
[2019-05-22] MEDS: NEURONTIN PO SCH ×2 (13:33→21:32)
[2019-05-22 16:08] LABS: Hepatitis B Surface Antigen Non-Reactive (Negative); Hepatitis C Virus Antibody Non-Reactive (NonReactive)
[2019-05-22] MEDS ORDERED: NACL 0.9 (PRIMING MACHINE ONLY DIALYSIS) MC ONE (23:35)
[2019-05-23] MEDS: PERCOCET 5/325 PO PRN ×2 (05:41→15:43)
[2019-05-23 07:52] LABS: Basophils % (Auto) 0.6 % (0.0-1.8); Eosinophils # (Auto) 0.1 K/mm3 (0.0-0.4); Eosinophils % (Auto) 1.5 % (0.0-4.3); Hematocrit 40.3 % (35.5-45.6); Hemoglobin 13.3 gm/dl (11.8-15.2); Lymphocytes # (Auto) 1.7 K/mm3 (1.2-5.4); Lymphocytes % (Auto) 20.8 % (13.4-35.0); Mean Corpuscular HGB Conc 33 % (32-34); Mean Corpuscular Volume 98 fl (84-94); Monocytes % (Auto) 12.8 % (0.0-7.3); Platelet Count 194 K/mm3 (140-440); Red Blood Count 4.12 M/mm3 (3.65-5.03)
--- NOTE | 2019-05-23 08:15 | Progress Note ---
Assessment and Plan Beltran Panchal is a 53 y/o AA male with a past medical history significant for ESRF on HD (T, TH, S), PAD, (s/p AVR in 2018), CAD (s/p STENT in 2018), DM, diabetic peripheral neuropathy, and HTN. He presented to the ED after having frequent falls at home. He reported that his Left leg "gave way" and he fell. This happened repeatedly throughout the evening 3 times at 6 pm, 8 pm and midnight. He also complained of having pain in his right knee and ankle after the falls. He was having difficulty walking and sought medical evaluation in the ED. Radiograph imaging was obtained in the ED of the foot, ankle, knee, and hip showing vascular calcifications of the R foot, R ankle, and R knee. With old healed fracture of the R ankle and no significant abnormality of the R hip. Xrays showed no acute fractures or dislocations. In the ED, he was noted to have a new Left BBB and mildly elevated troponin. He denies chest pain but states he does have SOB but has had this for some time. Cardiology was consulted. He was admitted for further evaluation. Impression: - Frequent falls at home of unknown etiology. Could be cardiac in origin. Cardiology consult obtain. - Right ankle strain with inability stank on it Splint in place Pain control Ortho consult for possible fracture as pt is unable to bear weigh on it. - New onset Left BBB serial Jorge Cardiology consulted. -History of aortic stenosis- status post AVR (12/12) -History of CAD- status post STENT (12/12) On plavix, statins. Holding BB because of BBB. - ESRF on HD Nephrology consulted for HD. - Elevated troponin- possible secondary to ESRD as he has no CP. On SQ heparin Serial Jorge. -DM Continue SSI and home medications. Consist carbohydrate diet HA1C - 5.9% DVT and GI prophylaxis with heparin and Protonix. CODE STATUS: Patient is a FULL CODE Time spent over 30 minutes in direct patient care in review of diagnostic data as well as explaining plan of care to patient. Subjective Date of service: 05/23/19 Principal diagnosis: FRequent fall. new LBBB, DM Interval history: Still having pain in the left ankle and unable to put any weight on it. No chest pain Objective - Exam Narrative Exam: Constitutional: Well-nourished well-developed. In no distress Head: Normocephalic atraumatic Eyes: Pupils are equal round and reactive to light Nose: No enlarged turbinates, no septal deviation. Mouth: Moist mucous membranes. Neck: Supple no thyromegaly. No bruit. No JVD Heart: Regular rate and rhythm, S1-S2 normal. No rubs murmurs or gallop Lungs: Clear to auscultation bilaterally. no rales or rhonchi Abdomen: Soft, nontender. Bowel sound are present. Extremities: No edema, no cyanosis, no clubbing. Neuro: Alert oriented Oriented x3. No focal sensory or motor deficit. Skin: No rashes or hyperpigmented spots Musculoskeletal system: Tender left ankle. Bruise on the right knee and splint present on right ankle. Hematological: No petechia or subcutanous hemorrhages. Immunological: No multiple septic spots on the skin Lymphatic: No generalized lymphadenopathy Psychiatry: Euthymic. Calm. - Constitutional Vitals: Vital Signs - 12hr 05/22/19 05/22/19 05/22/19 20:15 20:21 20:38 Temperature 97.8 F Pulse Rate 75 79 79 Pulse Rate [ Apical] Respiratory 16 18 Rate Respiratory Rate [Right Leg ] Blood Pressure 140/75 129/72 Blood Pressure [Right] O2 Sat by Pulse 99 Oximetry 05/22/19 05/22/19 05/22/19 20:45 21:32 22:00 Temperature 98.0 F Pulse Rate 79 Pulse Rate [ Apical] Respiratory Rate Respiratory 18 Rate [Right Leg ] Blood Pressure 129/72 Blood Pressure [Right] O2 Sat by Pulse Oximetry 05/22/19 05/23/19 05/23/19 22:55 00:15 04:22 Temperature 98.5 F Pulse Rate 77 88 Pulse Rate [ 79 Apical] Respiratory 18 18 18 Rate Respiratory Rate [Right Leg ] Blood Pressure 124/76 Blood Pressure 113/69 [Right] O2 Sat by Pulse 99 99 98 Oximetry 05/23/19 05/23/19 05/23/19 04:23 05:41 06:41 Temperature 99.0 F Pulse Rate Pulse Rate [ Apical] Respiratory 18 18 Rate Respiratory Rate [Right Leg ] Blood Pressure Blood Pressure [Right] O2 Sat by Pulse Oximetry - Labs CBC & Chem 7: 05/23/19 07:11 05/22/19 02:29 Labs: Abnormal lab results 05/22/19 05/22/19 05/22/19 Range/Units 11:20 16:20 20:50 MCV (84-94) fl RDW (13.2-15.2) % [place] % (Auto) (0.0-7.3) % [place] # (0.0-0.8) K/mm3 POC Glucose 131 H 178 H 127 H (70-105) 05/23/19 Range/Units 07:11 MCV 98 H (84-94) fl RDW 17.0 H (13.2-15.2) % [place] % (Auto) 12.8 H (0.0-7.3) % [place] # 1.0 H (0.0-0.8) K/mm3 POC Glucose (70-105)
[2019-05-23 08:21] LABS: Albumin 3.7 g/dL (3.9-5); Calcium 9.6 mg/dL (8.4-10.2)
[2019-05-23] MEDS ORDERED: ASPIRIN PO SCH (10:00)
[2019-05-23] MEDS: HALFPRIN EC PO SCH (10:44)
[2019-05-23] MEDS: PLAVIX PO SCH (10:44)
[2019-05-23] MEDS: PROTONIX PO SCH (10:45)
[2019-05-23] MEDS: HumaLOG SUB-Q SCH ×4 (10:45→22:45)
[2019-05-23] MEDS: TRADJENTA PO SCH (10:45)
[2019-05-23] MEDS: HEPARIN SUB-Q SCH ×2 (10:45→22:44)
[2019-05-23] MEDS: APRESOLINE PO SCH ×3 (10:46→20:29)
[2019-05-23] MEDS: NEURONTIN PO SCH ×3 (10:53→20:29)
--- NOTE | 2019-05-23 10:57 | Progress Note ---
<LINNEA BOYD - Last Filed: 05/23/19 10:55> Assessment and Plan Right leg/knee pain following a fall Hx of Valvular heart disease s/p TAVR 11/2018 LBBB, developed post TAVR Hx of single vessel CAD s/p PCI of the LAD 11/2018 on plavix and aspirin ESRD on dialysis Hypertension Diabetes Hx of Sleep Apnea Recommendations: Neuro workup is in progress for his multiple falls. Continue telemetry monitoring. Echocardiogram for left ventricular function and assessment of aortic stenosis post TAVR. Further cardiac workup would depend on clinical course, as outpatient we will consider an extended event monitor. Subjective Date of service: 05/23/19 Principal diagnosis: FRequent fall. new LBBB, DM Interval history: No cardiac complaints. Objective Vital Signs Temp Pulse Pulse Resp Resp BP BP 05/23/19 08:18 98.7 F 95 H 18 112/70 05/23/19 06:41 18 05/23/19 05:41 18 05/23/19 04:23 99.0 F 05/23/19 04:22 88 18 124/76 05/23/19 00:15 98.5 F 77 18 113/69 05/22/19 22:55 79 18 05/22/19 22:00 18 05/22/19 21:32 79 129/72 05/22/19 20:45 98.0 F 05/22/19 20:38 79 18 129/72 05/22/19 20:21 79 05/22/19 20:15 97.8 F 75 16 140/75 05/22/19 20:00 50 L 105/50 05/22/19 19:45 51 L 130/57 05/22/19 19:30 81 92/46 05/22/19 19:15 51 L 95/50 05/22/19 19:00 75 89/51 05/22/19 18:45 72 98/61 05/22/19 18:30 73 120/62 05/22/19 18:15 72 116/64 05/22/19 18:05 73 110/62 05/22/19 18:00 75 98/37 05/22/19 17:45 75 106/63 05/22/19 17:30 75 111/69 05/22/19 17:15 75 137/64 05/22/19 17:00 97.6 F 76 18 145/82 05/22/19 16:11 97.4 F L 79 16 148/78 05/22/19 13:33 125/64 05/22/19 12:48 97.7 F 79 16 134/76 05/22/19 11:19 80 18 125/64 Pulse Ox 05/23/19 08:18 97 05/23/19 06:41 05/23/19 05:41 05/23/19 04:23 05/23/19 04:22 98 05/23/19 00:15 99 05/22/19 22:55 99 05/22/19 22:00 05/22/19 21:32 05/22/19 20:45 05/22/19 20:38 99 05/22/19 20:21 05/22/19 20:15 05/22/19 20:00 05/22/19 19:45 05/22/19 19:30 05/22/19 19:15 05/22/19 19:00 05/22/19 18:45 05/22/19 18:30 05/22/19 18:15 05/22/19 18:05 05/22/19 18:00 05/22/19 17:45 05/22/19 17:30 05/22/19 17:15 05/22/19 17:00 05/22/19 16:11 100 05/22/19 13:33 05/22/19 12:48 100 05/22/19 11:19 100 - Physical Examination General: No Apparent Distress HEENT: Positive: PERRL Cardiac: Positive: Reg Rate and Rhythm Neuro: Positive: Weakness - Labs and Meds Cardiac Enzymes 05/23/19 Range/Units 07:11 AST 16 (5-40) units/L CBC 05/23/19 Range/Units 07:11 WBC 8.0 (4.5-11.0) K/mm3 RBC 4.12 (3.65-5.03) M/mm3 Hgb 13.3 (11.8-15.2) gm/dl Hct 40.3 (35.5-45.6) % Plt Count 194 (140-440) K/mm3 Lymph # 1.7 (1.2-5.4) K/mm3 [place] # 1.0 H (0.0-0.8) K/mm3 Eos # 0.1 (0.0-0.4) K/mm3 Baso # 0.0 (0.0-0.1) K/mm3 Comprehensive Metabolic Panel 05/23/19 Range/Units 07:11 Sodium 139 (137-145) mmol/L Potassium 4.2 (3.6-5.0) mmol/L Chloride 94.3 L (98-107) mmol/L Carbon Dioxide 28 (22-30) mmol/L BUN 38 H (9-20) mg/dL Creatinine 11.3 H (0.8-1.5) mg/dL Glucose 109 H (75-100) mg/dL Calcium 9.6 (8.4-10.2) mg/dL AST 16 (5-40) units/L ALT 17 (7-56) units/L Alkaline Phosphatase 104 (35-129) units/L Total Protein 7.7 (6.3-8.2) g/dL Albumin 3.7 L (3.9-5) g/dL <MAYLIN MAC - Last Filed: 05/23/19 11:18> Assessment and Plan I have seen and evaluated the patient agree with the assessment and plan. The patient has a history of valvular heart disease status post TAVR in December 13. Patient also has a history of single-vessel coronary artery disease sta tus post PCI of the LAD at that time. Patient is currently admitted for multiple falls. At this time we'll check an echocardiogram to evaluate the left ventricular function as well as assess the TAVOR function. Objective Vital Signs Temp Pulse Pulse Resp Resp BP BP 05/23/19 08:18 98.7 F 95 H 18 112/70 05/23/19 06:41 18 05/23/19 05:41 18 05/23/19 04:23 99.0 F 05/23/19 04:22 88 18 124/76 05/23/19 00:15 98.5 F 77 18 113/69 05/22/19 22:55 79 18 05/22/19 22:00 18 05/22/19 21:32 79 129/72 05/22/19 20:45 98.0 F 05/22/19 20:38 79 18 129/72 05/22/19 20:21 79 05/22/19 20:15 97.8 F 75 16 140/75 05/22/19 20:00 50 L 105/50 05/22/19 19:45 51 L 130/57 05/22/19 19:30 81 92/46 05/22/19 19:15 51 L 95/50 05/22/19 19:00 75 89/51 05/22/19 18:45 72 98/61 05/22/19 18:30 73 120/62 05/22/19 18:15 72 116/64 05/22/19 18:05 73 110/62 05/22/19 18:00 75 98/37 05/22/19 17:45 75 106/63 05/22/19 17:30 75 111/69 05/22/19 17:15 75 137/64 05/22/19 17:00 97.6 F 76 18 145/82 05/22/19 16:11 97.4 F L 79 16 148/78 05/22/19 13:33 125/64 05/22/19 12:48 97.7 F 79 16 134/76 05/22/19 11:19 80 18 125/64 Pulse Ox 05/23/19 08:18 97 05/23/19 06:41 05/23/19 05:41 05/23/19 04:23 05/23/19 04:22 98 05/23/19 00:15 99 05/22/19 22:55 99 05/22/19 22:00 05/22/19 21:32 05/22/19 20:45 05/22/19 20:38 99 05/22/19 20:21 05/22/19 20:15 05/22/19 20:00 05/22/19 19:45 05/22/19 19:30 05/22/19 19:15 05/22/19 19:00 05/22/19 18:45 05/22/19 18:30 05/22/19 18:15 05/22/19 18:05 05/22/19 18:00 05/22/19 17:45 05/22/19 17:30 05/22/19 17:15 05/22/19 17:00 05/22/19 16:11 100 05/22/19 13:33 05/22/19 12:48 100 05/22/19 11:19 100 - Labs and Meds Cardiac Enzymes 05/23/19 Range/Units 07:11 AST 16 (5-40) units/L CBC 05/23/19 Range/Units 07:11 WBC 8.0 (4.5-11.0) K/mm3 RBC 4.12 (3.65-5.03) M/mm3 Hgb 13.3 (11.8-15.2) gm/dl Hct 40.3 (35.5-45.6) % Plt Count 194 (140-440) K/mm3 Lymph # 1.7 (1.2-5.4) K/mm3 [place] # 1.0 H (0.0-0.8) K/mm3 Eos # 0.1 (0.0-0.4) K/mm3 Baso # 0.0 (0.0-0.1) K/mm3 Comprehensive Metabolic Panel 05/23/19 Range/Units 07:11 Sodium 139 (137-145) mmol/L Potassium 4.2 (3.6-5.0) mmol/L Chloride 94.3 L (98-107) mmol/L Carbon Dioxide 28 (22-30) mmol/L BUN 38 H (9-20) mg/dL Creatinine 11.3 H (0.8-1.5) mg/dL Glucose 109 H (75-100) mg/dL Calcium 9.6 (8.4-10.2) mg/dL AST 16 (5-40) units/L ALT 17 (7-56) units/L Alkaline Phosphatase 104 (35-129) units/L Total Protein 7.7 (6.3-8.2) g/dL Albumin 3.7 L (3.9-5) g/dL
--- NOTE | 2019-05-23 10:57 | Consultation ---
History of Present Illness - Reason for Consult Consult date: 05/23/19 end stage renal disease - History of Present Illness Very pleasant 53-year-old -[place] male with past medical history of end-stage renal disease in the setting of hypertension, diabetes with also significant history of severe aortic stenosis status post TAVR ,who is well known to our outpatient dialysis unit at [facility]. He presented to the emergency department secondary to fall at home, stating that his legs gave out from underneath him. He denies any chest pains or palpitations prior to these falls. He has just had an echocardiogram done this morning for further evaluation. Following up with further recommendations from cardiology. Patient received hemodialysis yesterday and patient. Was able to tolerate the ultrafiltration on 1 L. He is essentially near is estimated dry weight. He does not have any significant edema noted on physical examination. Past History Past Medical History: CAD, diabetes, dialysis, ESRD, hypertension, PVD, renal failure, other (diabetic peripheral neuropathy) Past Surgical History: valve replacement (aortic), PTCA, Other Social history: single. denies: smoking, alcohol abuse, IV drug use Family history: denies: no significant family history Medications and Allergies Allergies Allergy/AdvReac Type Severity Reaction Status Date / Time No Known Allergies Allergy Verified 02/07/14 10:39 Home Medications Medication Instructions Recorded Confirmed Last Taken Type AtorvaSTATin [Lipitor] 40 mg PO QHS 05/22/19 05/22/19 Unknown History Clopidogrel [Plavix] 75 mg PO QDAY 05/22/19 05/22/19 Unknown History Gabapentin [Neurontin] 100 mg PO TID 05/22/19 05/22/19 Unknown History Linagliptin [Tradjenta] 5 mg PO QDAY 05/22/19 05/22/19 Unknown History hydrALAZINE [Apresoline] 25 mg PO TID 05/22/19 05/22/19 Unknown History Active Meds: Active Medications Aspirin (Halfprin Ec) 81 mg PO QDAY [facility] Atorvastatin Calcium (Lipitor) 40 mg PO QHS [facility] Last Admin: 05/22/19 21:32 Dose: 40 mg Documented by: Clopidogrel Bisulfate (Plavix) 75 mg PO QDAY [facility] Last Admin: 05/22/19 11:18 Dose: 75 mg Documented by: Dextrose (D50w (25gm) Syringe) 50 ml IV PRN PRN PRN Reason: Hypoglycemia Gabapentin (Neurontin) 100 mg PO TID [facility] Last Admin: 05/22/19 21:32 Dose: 100 mg Documented by: Heparin Sodium (Porcine) (Heparin) 5,000 unit SUB-Q Q12HR [facility] Last Admin: 05/22/19 21:33 Dose: 5,000 unit Documented by: Hydralazine HCl (Apresoline) 25 mg PO TID [facility] Last Admin: 05/22/19 21:32 Dose: 25 mg Documented by: Sodium Chloride (Nacl 0.9%) 100 mls @ 999 mls/hr IV ASH PRN PRN Reason: Hypotension Insulin Human Lispro (Humalog) 0 unit SUB-Q ACHS [facility]; Protocol Last Admin: 05/22/19 21:33 Dose: Not Given Documented by: Linagliptin (Tradjenta) 5 mg PO QDAY [facility] Last Admin: 05/22/19 11:18 Dose: Not Given Documented by: Oxycodone/Acetaminophen (Percocet 5/325) 1 tab PO Q8H PRN PRN Reason: Pain, Moderate (4-6) Last Admin: 05/23/19 05:41 Dose: 1 tab Documented by: Pantoprazole Sodium (Protonix) 40 mg PO DAILY [facility] Review of Systems All systems: negative Constitutional: weakness Cardiovascular: lightheadedness Exam - Vital Signs Vital signs: Vital Signs Temp Pulse Resp BP Pulse Ox 98.6 F 85 10 L 115/52 96 05/22/19 01:56 05/22/19 01:56 05/22/19 01:56 05/22/19 01:56 05/22/19 01:56 - General Appearance General appearance: well-developed, well-nourished, appears stated age EENT: ATNC, PERRL Neck: Present: neck supple, trachea midline Respiratory: Clear to Ascultation, Normal Exam Heart: regular, S1S2 Gastrointestinal: Present: normal, normoactive bowel sounds Integumentary: no rash, warm and dry Neurologic: no focal deficit, no asterixis, CN 3-12 intact Musculoskeletal: Present: decreased ROM Psychiatric: mood/affect appropriate, cooperative Results - Lab Results 05/23/19 07:11 05/23/19 07:11 Most recent lab results Calcium 9.6 mg/dL (8.4-10.2) 05/23/19 07:11 Phosphorus 5.40 mg/dL (2.5-4.5) H 05/23/19 07:11 Magnesium 1.90 mg/dL (1.7-2.3) 05/23/19 07:11 Assessment and Plan - Patient Problems (1) End stage renal disease Current Visit: Yes Status: Chronic Plan to address problem: Patient was dialyzed yesterday, per Tuesday//Tuesday hemodialysis inpatient schedule. We'll maintain on the schedule. (2) Fall Current Visit: Yes Status: Acute Plan to address problem: Cardiac workup underway. He is also having an echocardiogram done. Symptomatic management per primary team. Pending also orthopedic evaluation secondary to right foot/ankle pain post fall. (3) Hypertensive chronic kidney disease with stage 5 chronic kidney disease or end stage renal disease Current Visit: No Status: Chronic Plan to address problem: Discuss with staff to hold hydralazine at this time given his current vital signs. Monitor closely. (4) Secondary hyperparathyroidism (of renal origin) Current Visit: No Status: Chronic Plan to address problem: Would favor to continue patient on phosphate binders regimen.
--- NOTE | 2019-05-23 15:04 | Consultation ---
History of Present Illness - HPI Consult date: 05/23/19 Consult reason: joint pain History of present illness: 53 y/o male with c/o right ankle pain after fall recently, states difficult to place much weight onto right LE... Past History Past Medical History: CAD, diabetes, dialysis, ESRD, hypertension, PVD, renal failure, other (diabetic peripheral neuropathy) Past Surgical History: valve replacement (aortic), PTCA, Other Social history: single. denies: smoking, alcohol abuse, IV drug use Family history: denies: no significant family history Medications and Allergies Allergies Allergy/AdvReac Type Severity Reaction Status Date / Time No Known Allergies Allergy Verified 02/07/14 10:39 Home Medications Medication Instructions Recorded Confirmed Last Taken Type AtorvaSTATin [Lipitor] 40 mg PO QHS 05/22/19 05/22/19 Unknown History Clopidogrel [Plavix] 75 mg PO QDAY 05/22/19 05/22/19 Unknown History Gabapentin [Neurontin] 100 mg PO TID 05/22/19 05/22/19 Unknown History Linagliptin [Tradjenta] 5 mg PO QDAY 05/22/19 05/22/19 Unknown History hydrALAZINE [Apresoline] 25 mg PO TID 05/22/19 05/22/19 Unknown History Active Meds: Active Medications Aspirin (Halfprin Ec) 81 mg PO QDAY [facility] Last Admin: 05/23/19 10:44 Dose: 81 mg Documented by: Atorvastatin Calcium (Lipitor) 40 mg PO QHS [facility] Last Admin: 05/22/19 21:32 Dose: 40 mg Documented by: Clopidogrel Bisulfate (Plavix) 75 mg PO QDAY [facility] Last Admin: 05/23/19 10:44 Dose: 75 mg Documented by: Dextrose (D50w (25gm) Syringe) 50 ml IV PRN PRN PRN Reason: Hypoglycemia Gabapentin (Neurontin) 100 mg PO TID [facility] Last Admin: 05/23/19 10:53 Dose: 100 mg Documented by: Heparin Sodium (Porcine) (Heparin) 5,000 unit SUB-Q Q12HR [facility] Last Admin: 05/23/19 10:45 Dose: 5,000 unit Documented by: Hydralazine HCl (Apresoline) 25 mg PO TID [facility] Last Admin: 05/23/19 13:29 Dose: Not Given Documented by: Sodium Chloride (Nacl 0.9%) 100 mls @ 999 mls/hr IV ASH PRN PRN Reason: Hypotension Insulin Human Lispro (Humalog) 0 unit SUB-Q ACHS [facility]; Protocol Last Admin: 05/23/19 12:33 Dose: Not Given Documented by: Linagliptin (Tradjenta) 5 mg PO QDAY [facility] Last Admin: 05/23/19 10:45 Dose: 5 mg Documented by: Oxycodone/Acetaminophen (Percocet 5/325) 1 tab PO Q8H PRN PRN Reason: Pain, Moderate (4-6) Last Admin: 05/23/19 05:41 Dose: 1 tab Documented by: Pantoprazole Sodium (Protonix) 40 mg PO DAILY [facility] Last Admin: 05/23/19 10:45 Dose: 40 mg Documented by: Physical Examination - Physical exam Narrative exam: right LE - ankle - mild swelling, no deformity, tender along lateral border, passive ROM ok, distal n/v intact plain xrays right ankle reviewed by me and read as unremarkable... Eyes: PERRL ENT: Positive: clear oral mucosa Respiratory effort: normal Respiratory: bilateral: CTA Rhythm: regular Heart Sounds: Positive: S1 & S2 General gastrointestinal: Positive: soft, non-tender, non-distended, normal bowel sounds Integumentary: clear, warm, dry Neurologic: Positive: CNII-XII intact, moves all extremities, gait normal. Negative: focal deficits Assessment and Plan sprain right ankle will try walking boot, WBAT right LE
[2019-05-24] MEDS: PERCOCET 5/325 PO PRN ×3 (04:19→21:42)
[2019-05-24 05:57] LABS: Basophils # (Auto) 0.1 K/mm3 (0.0-0.1); Eosinophils # (Auto) 0.1 K/mm3 (0.0-0.4); Eosinophils % (Auto) 1.8 % (0.0-4.3); Hemoglobin 12.8 gm/dl (11.8-15.2); Lymphocytes % (Auto) 25.8 % (13.4-35.0); Mean Corpuscular HGB Conc 33 % (32-34); Mean Corpuscular Volume 99 fl (84-94); Monocytes # (Auto) 1.1 K/mm3 (0.0-0.8); Monocytes % (Auto) 14.4 % (0.0-7.3); Platelet Count 196 K/mm3 (140-440); Red Blood Count 3.95 M/mm3 (3.65-5.03)
[2019-05-24 06:17] LABS: Albumin 3.3 g/dL (3.9-5); Calcium 9.3 mg/dL (8.4-10.2)
[2019-05-24] MEDS: NEURONTIN PO SCH ×3 (08:00→21:42)
[2019-05-24] MEDS: HumaLOG SUB-Q SCH ×4 (09:08→21:44)
--- NOTE | 2019-05-24 09:43 | Progress Note ---
Assessment and Plan Right leg/knee pain following a fall Hx of Valvular heart disease s/p TAVR 11/2018 LBBB, developed post TAVR Hx of single vessel CAD s/p PCI of the LAD 11/2018 on plavix and aspirin ESRD on dialysis Hypertension Diabetes Hx of Sleep Apnea An echocardiogram this admission reports a decreased left ventricular systolic function, EF 35-40%. Normal functioning bio-prosthetic aortic valve. Recommendations: Continue medical therapy for coronary artery disease. Stable cardiac mejia. As an outpatient we will recommend a 30-day event monitor. Follow up with [facility] as scheduled June 01 at 240p. Subjective Date of service: 05/24/19 Principal diagnosis: FRequent fall. new LBBB, DM Interval history: Seen in dialysis. Patient has no complaints. Objective Vital Signs Temp Pulse Pulse Resp Resp BP Pulse Ox 05/24/19 07:40 98.5 F 18 151/43 05/24/19 05:19 18 05/24/19 04:19 18 05/24/19 04:18 98.2 F 95 H 18 104/70 98 05/23/19 23:28 98.2 F 91 H 18 106/67 98 05/23/19 22:35 96 H 18 97 05/23/19 22:00 18 05/23/19 20:29 96 H 137/96 05/23/19 19:40 98.0 F 96 H 18 137/76 97 05/23/19 19:26 97 H 05/23/19 12:02 97.7 F 92 H 18 130/62 99 05/23/19 10:00 78 - Physical Examination General: No Apparent Distress HEENT: Positive: PERRL Neck: Positive: trachea midline Cardiac: Positive: Reg Rate and Rhythm Lungs: Positive: Decreased Breath Sounds Neuro: Positive: Weakness - Labs and Meds Cardiac Enzymes 05/24/19 Range/Units 05:05 AST 16 (5-40) units/L CBC 05/24/19 Range/Units 05:05 WBC 7.6 (4.5-11.0) K/mm3 RBC 3.95 (3.65-5.03) M/mm3 Hgb 12.8 (11.8-15.2) gm/dl Hct 39.0 (35.5-45.6) % Plt Count 196 (140-440) K/mm3 Lymph # 2.0 (1.2-5.4) K/mm3 [place] # 1.1 H (0.0-0.8) K/mm3 Eos # 0.1 (0.0-0.4) K/mm3 Baso # 0.1 (0.0-0.1) K/mm3 Comprehensive Metabolic Panel 05/24/19 Range/Units 05:05 Sodium 138 (137-145) mmol/L Potassium 4.4 (3.6-5.0) mmol/L Chloride 92.8 L (98-107) mmol/L Carbon Dioxide 25 (22-30) mmol/L BUN 54 H (9-20) mg/dL Creatinine 13.8 H (0.8-1.5) mg/dL Glucose 144 H (75-100) mg/dL Calcium 9.3 (8.4-10.2) mg/dL AST 16 (5-40) units/L ALT 18 (7-56) units/L Alkaline Phosphatase 101 (35-129) units/L Total Protein 7.3 (6.3-8.2) g/dL Albumin 3.3 L (3.9-5) g/dL
--- NOTE | 2019-05-24 10:25 | Progress Note ---
Assessment and Plan - Patient Problems (1) End stage renal disease Current Visit: Yes Status: Chronic Plan to address problem: Will maintain patient on Tuesday//Tuesday inpatient hemodialysis schedule. (2) Fall Current Visit: Yes Status: Acute Plan to address problem: Cardiac workup underway. He is also having an echocardiogram done. Symptomatic management per primary team. orthopedic evaluation secondary to right foot/ankle pain post fall reviewed with plan for brace placement. (3) Hypertensive chronic kidney disease with stage 5 chronic kidney disease or end stage renal disease Current Visit: No Status: Chronic Plan to address problem: Monitor closely on current regimen. (4) Secondary hyperparathyroidism (of renal origin) Current Visit: No Status: Chronic Plan to address problem: Would favor to continue patient on phosphate binders regimen. Subjective Date of service: 05/24/19 Principal diagnosis: FRequent fall. new LBBB, DM Interval history: No acute issues overnight. Patient seen at hemodialysis this morning. Echocardiogram results reviewed. Objective - Vital Signs Vital signs: Vital Signs - 12hr 05/23/19 05/23/19 05/24/19 22:35 23:28 04:18 Temperature 98.2 F 98.2 F Pulse Rate 91 H 95 H Pulse Rate [ 96 H Apical] Respiratory 18 18 18 Rate Blood Pressure 106/67 104/70 O2 Sat by Pulse 97 98 98 Oximetry 05/24/19 05/24/19 05/24/19 04:19 05:19 07:40 Temperature 98.5 F Pulse Rate Pulse Rate [ Apical] Respiratory 18 18 18 Rate Blood Pressure 151/43 O2 Sat by Pulse Oximetry - General Appearance General appearance: well-developed, well-nourished, appears stated age EENT: ATNC, PERRL Neck: no JVD, no thyromegaly Respiratory: Present: Clear to Ascultation, Normal Exam Cardiology: regular, normal heart rate Gastrointestinal: normal, normoactive bowel sounds Integumentary: no rash, warm and dry Neurologic: no focal deficit, no asterixis, alert and oriented x3 Musculoskeletal: other (-edema ) Psychiatric: mood/affect appropriate, cooperative - Lab 05/24/19 05:05 05/24/19 05:05 Most recent lab results Calcium 9.3 mg/dL (8.4-10.2) 05/24/19 05:05 Phosphorus 5.40 mg/dL (2.5-4.5) H 05/23/19 07:11 Magnesium 1.90 mg/dL (1.7-2.3) 05/23/19 07:11 - Allied health notes Allied health notes reviewed: nursing Medications & Allergies - Medications Allergies/Adverse Reactions: Allergies No Known Allergies Allergy (Verified 02/07/14 10:39) Home Medications: Home Medications Medication Instructions Recorded Confirmed Last Taken Type AtorvaSTATin [Lipitor] 40 mg PO QHS 05/22/19 05/22/19 Unknown History Clopidogrel [Plavix] 75 mg PO QDAY 05/22/19 05/22/19 Unknown History Gabapentin [Neurontin] 100 mg PO TID 05/22/19 05/22/19 Unknown History Linagliptin [Tradjenta] 5 mg PO QDAY 05/22/19 05/22/19 Unknown History hydrALAZINE [Apresoline] 25 mg PO TID 05/22/19 05/22/19 Unknown History Active Medications: Generic Name Dose Route Start Last Admin Trade Name Freq PRN Reason Stop Dose Admin Aspirin 81 mg 05/23/19 10:00 05/23/19 10:44 Halfprin Ec PO 81 mg QDAY TIFFANY Administration Atorvastatin Calcium 40 mg 05/22/19 22:00 05/23/19 22:44 Lipitor PO 40 mg QHS TIFFANY Administration Clopidogrel Bisulfate 75 mg 05/22/19 10:00 05/23/19 10:44 Plavix PO 75 mg QDAY TIFFANY Administration Dextrose 50 ml 05/22/19 09:19 D50w (25gm) Syringe IV PRN PRN Hypoglycemia Gabapentin 100 mg 05/22/19 14:00 05/23/19 20:29 Neurontin PO 100 mg TID TIFFANY Administration Heparin Sodium (Porcine) 5,000 unit 05/22/19 10:00 05/23/19 22:44 Heparin SUB-Q 5,000 unit Q12HR TIFFANY Administration Hydralazine HCl 25 mg 05/22/19 14:00 05/23/19 20:29 Apresoline PO 25 mg TID TIFFANY Administration Sodium Chloride 100 mls @ 999 mls/hr 05/22/19 12:34 Nacl 0.9% IV ASH PRN Hypotension Insulin Human Lispro 0 unit 05/22/19 11:30 05/24/19 09:08 Humalog SUB-Q Not Given ACHS TIFFANY Protocol Linagliptin 5 mg 05/22/19 10:00 05/23/19 10:45 Tradjenta PO 5 mg QDAY TIFFANY Administration Oxycodone/Acetaminophen 1 tab 05/22/19 22:32 05/24/19 04:19 Percocet 5/325 PO 1 tab Q8H PRN Administration Pain, Moderate (4-6) Pantoprazole Sodium 40 mg 05/23/19 10:00 05/23/19 10:45 Protonix PO 40 mg DAILY TIFFANY Administration
[2019-05-24] MEDS: APRESOLINE PO SCH ×3 (13:03→21:42)
[2019-05-24] MEDS: PROTONIX PO SCH (13:20)
[2019-05-24] MEDS: TRADJENTA PO SCH (13:20)
[2019-05-24] MEDS: PLAVIX PO SCH (13:22)
[2019-05-24] MEDS: HALFPRIN EC PO SCH (13:22)
[2019-05-24] MEDS: HEPARIN SUB-Q SCH ×2 (13:23→21:43)
--- NOTE | 2019-05-24 23:33 | Discharge Summary ---
Providers - Providers Date of Admission: 05/22/19 05:33 Date of discharge: 05/24/19 Attending physician: BELLO JACOB 05/22/19 08:56 Physical Therapy Evaluation and Treat [CONS] Routine Comment: Reason For Exam: unstable gait with frequent falls 05/22/19 08:58 Consult to Cardiology [CONS] Routine Consulting Provider: JENNIFER NAVA Reason For Exam: new onset LBBP and Elevated Jorge 05/22/19 09:02 Consult to Physician [CONS] Routine Comment: Consulting Provider: AMRGO VAUGHAN Physician Instructions: Reason For Exam: ESRD on HD 05/22/19 19:08 Consult to Wound/ET Nurse [CONS] Routine Reason For Exam: wound eval for RLE just below knee, present on adm 05/23/19 08:16 Consult to Physician [CONS] Routine Comment: Consulting Provider: KIMBERLY MCNEAL Physician Instructions: Reason For Exam: possible Fracture right ankle/foot 05/23/19 15:06 Physical Therapy Evaluation and Treat [CONS] Routine Comment: Reason For Exam: right ankle pain Weight bearing status?: Full wt bearing Assistive devices?: Yes If so list: Walker Primary care physician: BELLO JACOB Hospitalization Reason for admission: Frequent fall and new LBBB Condition: Stable Pertinent studies: Xray of the right yaw and hip - shoed no Fracture EKG - new LBBB ECHO showed 35-45% LVEF Procedures: none Hospital course: Beltran Panchal is a 53 y/o AA male with a past medical history significant for ESRF on HD (T, TH, S), PAD, (s/p AVR in 2018), CAD (s/p STENT in 2018), DM, diabetic peripheral neuropathy, and HTN. He presented to the ED after having frequent falls at home. He reported that his Left leg "gave way" and he fell. This happened repeatedly throughout the evening 3 times at 6 pm, 8 pm and midnight. He also complained of having pain in his right knee and ankle after the falls. He was having difficulty walking and sought medical evaluation in the ED. Radiograph imaging was obtained in the ED of the foot, ankle, knee, and hip showing vascular calcifications of the R foot, R ankle, and R knee. With old healed fracture of the R ankle and no significant abnormality of the R hip. Xrays showed no acute fractures or dislocations. In the ED, he was noted to have a new Left BBB and mildly elevated troponin. He denies chest pain but states he does have SOB but has had this for some time. Cardiology was consulted. EXCHO done. shoed moderately reduce systolic function with LVEF of 35-40 %. Ortho consult obtained. Rright ankle strain confirmed. Recommened to be on walking boot and WBAT right LE. Nephrology consult and pt continue with HD Disposition: -01 TO HOME OR SELFCARE Time spent for discharge: 35 min - Discharge Diagnoses (1) Fall Status: Acute (2) New onset left bundle branch block (LBBB) Status: Acute (3) Right ankle sprain Status: Acute (4) End stage renal disease Status: Chronic (5) Epigastric abdominal pain Status: Acute (6) GERD (gastroesophageal reflux disease) Status: Acute Core Measure Documentation - Palliative Care Palliative Care/ Comfort Measures: Not Applicable Exam - Physical Exam Narrative exam: Constitutional: Well-nourished well-developed. In no distress Head: Normocephalic atraumatic Eyes: Pupils are equal round and reactive to light Nose: No enlarged turbinates, no septal deviation. Mouth: Moist mucous membranes. Neck: Supple no thyromegaly. No bruit. No JVD Heart: Regular rate and rhythm, S1-S2 normal. No rubs murmurs or gallop Lungs: Clear to auscultation bilaterally. no rales or rhonchi Abdomen: Soft, nontender. Bowel sound are present. Extremities: No edema, no cyanosis, no clubbing. Neuro: Alert oriented Oriented x3. No focal sensory or motor deficit. Skin: No rashes or hyperpigmented spots Musculoskeletal system: Tender left ankle. Bruise on the right knee and splint present on right ankle. Hematological: No petechia or subcutanous hemorrhages. Immunological: No multiple septic spots on the skin Lymphatic: No generalized lymphadenopathy Psychiatry: Euthymic. Calm. - Constitutional Vitals: Temp Pulse Resp BP Pulse Ox 98.5 F 96 H 20 139/72 98 05/24/19 19:37 05/24/19 21:55 05/24/19 21:55 05/24/19 21:42 05/24/19 21:55 Plan Activity: fall precautions Weight Bearing Status: Non-Weight Bearing Diet: renal Durable Medical Equipment Needed Upon Discharge: Walker-Rolling Follow up with: SONI VELAZCOANTHONY MD KITTY [Referring] - 14 Days BELLO JACOB MD [Primary Care Provider] - 05/28/19 CODIE OLIVER MD [Staff Physician] - 7 Days Prescriptions: oxyCODONE /ACETAMINOPHEN [Percocet 5/325 mg] 1 tab PO Q8H PRN #20 tablet PRN Reason: Pain, Moderate (4-6) Pantoprazole [Protonix TAB] 40 mg PO DAILY #30 tablet Linagliptin [Tradjenta] 5 mg PO QDAY #30 tablet
--- NOTE | 2019-05-25 06:19 | Progress Note ---
Assessment and Plan Beltran Panchal is a 53 y/o AA male with a past medical history significant for ESRF on HD (, , ), PAD, (s/p AVR in 2018), CAD (s/p STENT in 2018), DM, diabetic peripheral neuropathy, and HTN. He presented to the ED after having frequent falls at home. He reported that his Left leg "gave way" and he fell. This happened repeatedly throughout the evening 3 times at 6 pm, 8 pm and midnight. He also complained of having pain in his right knee and ankle after the falls. He was having difficulty walking and sought medical evaluation in the ED. Radiograph imaging was obtained in the ED of the foot, ankle, knee, and hip showing vascular calcifications of the R foot, R ankle, and R knee. With old healed fracture of the R ankle and no significant abnormality of the R hip. Xrays showed no acute fractures or dislocations. In the ED, he was noted to have a new Left BBB and mildly elevated troponin. He denies chest pain but states he does have SOB but has had this for some time. Cardiology was consulted. He was admitted for further evaluation. Impression: - Frequent falls at home of unknown etiology. Could be cardiac in origin. However states his right leg javed Cardiology consult obtain. - Right ankle strain with inability stand on it Splint in place Pain control Ortho consulted. Agreed it is an ankle strain. Input appreciated t. - New onset Left BBB secondary to TAVR Cardiology consulted. -History of aortic stenosis- status post TAVR (12/12) -History of CAD- status post STENT (12/12) On plavix, statins. Holding BB because of BBB. - ESRF on HD on and Sat Nephrology consulted for HD. - Elevated troponin - Improved On SQ heparin -DM Continue SSI and home medications. Consist carbohydrate diet HA1C - 5.9% DVT and GI prophylaxis with heparin and Protonix. CODE STATUS: Patient is a FULL CODE Dishcarged home to f/u with PCP and cardiology Time spent 25 min in direct patient care in review of diagnostic data as well as explaining plan of care to patient. - Patient Problems (1) Fall Current Visit: Yes Status: Acute (2) New onset left bundle branch block (LBBB) Current Visit: Yes Status: Acute (3) Right ankle sprain Current Visit: Yes Status: Acute (4) End stage renal disease Current Visit: Yes Status: Chronic (5) Epigastric abdominal pain Current Visit: No Status: Acute (6) GERD (gastroesophageal reflux disease) Current Visit: No Status: Acute Subjective Date of service: 05/25/19 Principal diagnosis: FRequent fall. new LBBB, DM, ESRD on HD Interval history: Pain in the left ankle and knee improved. No chest pain Objective - Exam Narrative Exam: Constitutional: Well-nourished well-developed. In no distress Head: Normocephalic atraumatic Eyes: Pupils are equal round and reactive to light Nose: No enlarged turbinates, no septal deviation. Mouth: Moist mucous membranes. Neck: Supple no thyromegaly. No bruit. No JVD Heart: Regular rate and rhythm, S1-S2 normal. No rubs murmurs or gallop Lungs: Clear to auscultation bilaterally. no rales or rhonchi Abdomen: Soft, nontender. Bowel sound are present. Extremities: No edema, no cyanosis, no clubbing. Neuro: Alert oriented Oriented x3. No focal sensory or motor deficit. Skin: No rashes or hyperpigmented spots Musculoskeletal system: Tender left ankle. Bruise on the right knee and splint present on right ankle. Hematological: No petechia or subcutanous hemorrhages. Immunological: No multiple septic spots on the skin Lymphatic: No generalized lymphadenopathy Psychiatry: Euthymic. Calm. - Constitutional Vitals: Vital Signs - 12hr 05/24/19 05/24/19 05/24/19 18:48 19:37 21:42 Temperature 98.5 F Pulse Rate 88 96 H 96 H Pulse Rate [ Apical] Respiratory 20 20 Rate Blood Pressure 139/72 139/72 O2 Sat by Pulse 97 Oximetry 05/24/19 05/24/19 05/25/19 21:55 22:00 00:00 Temperature 98.2 F Pulse Rate 95 H 97 H Pulse Rate [ 96 H Apical] Respiratory 20 18 Rate Blood Pressure 107/82 O2 Sat by Pulse 98 98 Oximetry 05/25/19 04:12 Temperature 97.9 F Pulse Rate 93 H Pulse Rate [ Apical] Respiratory 18 Rate Blood Pressure 110/63 O2 Sat by Pulse 98 Oximetry - Labs CBC & Chem 7: 05/24/19 05:05 05/24/19 05:05 Labs: Abnormal lab results 05/24/19 05/24/19 05/24/19 Range/Units 05:05 07:40 16:47 Chloride 92.8 L (98-107) mmol/L BUN 54 H (9-20) mg/dL Creatinine 13.8 H (0.8-1.5) mg/dL Glucose 144 H (75-100) mg/dL POC Glucose 130 H 142 H (70-105) Albumin 3.3 L (3.9-5) g/dL 05/24/19 Range/Units 21:16 Chloride (98-107) mmol/L BUN (9-20) mg/dL Creatinine (0.8-1.5) mg/dL Glucose (75-100) mg/dL POC Glucose 126 H (70-105) Albumin (3.9-5) g/dL
[2019-05-25 07:49] VITALS: BP 126/69
[2019-05-25] MEDS: HumaLOG SUB-Q SCH (08:44)
--- NOTE | 2019-05-25 10:12 | Progress Note ---
Assessment and Plan Right leg/knee pain following a fall Hx of Valvular heart disease s/p TAVR 11/2018 LBBB, developed post TAVR Hx of single vessel CAD s/p PCI of the LAD 11/2018 on plavix and aspirin ESRD on dialysis Hypertension Diabetes Hx of Sleep Apnea An echocardiogram this admission reports a decreased left ventricular systolic function, EF 35-40%. Normal functioning bio-prosthetic aortic valve. Recommendations: Continue medical therapy for coronary artery disease. Stable cardiac mejia. As an outpatient we will recommend a 30-day event monitor. Follow up with [facility] as scheduled June 01 at 240p. Subjective Date of service: 05/25/19 Principal diagnosis: FRequent fall. new LBBB, DM, ESRD on HD Interval history: Patient has no complaints. No events on telemetry. Objective Vital Signs Temp Pulse Pulse Resp BP Pulse Ox 05/25/19 07:47 98.6 F 91 H 18 126/69 98 05/25/19 04:12 97.9 F 93 H 18 110/63 98 05/25/19 00:00 98.2 F 97 H 18 107/82 98 05/24/19 22:00 95 H 05/24/19 21:55 96 H 20 98 05/24/19 21:42 96 H 20 139/72 05/24/19 19:37 98.5 F 96 H 20 139/72 97 05/24/19 18:48 88 05/24/19 18:11 129/79 05/24/19 14:54 89 05/24/19 14:21 94 H 139/69 05/24/19 14:20 94 H 139/69 98 05/24/19 13:03 95 H 151/43 05/24/19 12:25 84 100/67 05/24/19 12:15 85 92/68 05/24/19 12:00 84 106/71 05/24/19 11:45 83 116/70 05/24/19 11:30 87 92/54 05/24/19 11:15 86 81/61 05/24/19 11:00 86 93/59 05/24/19 10:45 86 89/72 05/24/19 10:30 88 85/49 05/24/19 10:15 90 98/53 - Physical Examination General: No Apparent Distress HEENT: Positive: PERRL Neck: Positive: trachea midline Cardiac: Positive: Reg Rate and Rhythm Lungs: Positive: Decreased Breath Sounds Neuro: Positive: Weakness - Allied health notes Allied health notes reviewed: nursing
[2019-05-25] MEDS: APRESOLINE PO SCH (10:48)
[2019-05-25] MEDS: PLAVIX PO SCH (10:48)
[2019-05-25] MEDS: HALFPRIN EC PO SCH (10:48)
[2019-05-25] MEDS: NEURONTIN PO SCH (10:49)
[2019-05-25] MEDS: TRADJENTA PO SCH (10:49)
[2019-05-25] MEDS: PROTONIX PO SCH (10:49)
[2019-05-25] MEDS: HEPARIN SUB-Q SCH (10:50)
== END 2019-05-25 13:15 | disposition home or self-care (01) | DRG 562 ==
LOC: ED 01:42 → 4A 05:33
PROVIDERS: ADMIT Family Medicine; ATTEND Family Medicine
PROC: 5A1D70Z Performance of Urinary Filtration, Intermittent, Less than 6 Hours Per Day (ICD-10-PCS; principal; 2019-05-22)
PROC: 5A1D70Z Performance of Urinary Filtration, Intermittent, Less than 6 Hours Per Day (ICD-10-PCS; 2019-05-24)
DX: S93.401A Sprain of unspecified ligament of right ankle, initial encounter (principal); N18.6 End stage renal disease; I12.0 Hypertensive chronic kidney disease with stage 5 chronic kidney disease or end stage renal disease; N25.81 Secondary hyperparathyroidism of renal origin; I44.7 Left bundle-branch block, unspecified; E11.22 Type 2 diabetes mellitus with diabetic chronic kidney disease; E11.51 Type 2 diabetes mellitus with diabetic peripheral angiopathy without gangrene; I25.10 Atherosclerotic heart disease of native coronary artery without angina pectoris; K21.9 Gastro-esophageal reflux disease without esophagitis; E11.42 Type 2 diabetes mellitus with diabetic polyneuropathy; W18.30XA Fall on same level, unspecified, initial encounter; Y93.89 Activity, other specified; Y92.049 Unspecified place in boarding-house as the place of occurrence of the external cause; Y99.8 Other external cause status; Z95.5 Presence of coronary angioplasty implant and graft; Z99.2 Dependence on renal dialysis; Z90.49 Acquired absence of other specified parts of digestive tract; Z95.2 Presence of prosthetic heart valve
CPT/HCPCS: 36415; 71045; 80053; 80061; 80074; 82962; 83036; 83735; 84100; 84484; 85025; 85610; 85730; 93005; 93010; 93306; 96374; G0378; A9270-GY; J1644; J1815; J7030

== ENCOUNTER 2021-04-11 08:51 | Emergency (ER) | payer MEDICARE ==
[2021-04-11 09:30] VITALS: BP 176/75
--- NOTE | 2021-04-11 11:32 | Emergency Department Report ---
ED ENT HPI - General Chief complaint: Dental/Oral Stated complaint: DENTAL PAIN Time Seen by Provider: 04/11/21 11:24 Source: patient Mode of arrival: Ambulatory Limitations: No Limitations - History of Present Illness Initial comments: Patient is a 55-year-old male presents emergency room with complaints of upper dental pain that began 2 days ago. He states approximately 2 weeks ago he cracked his tooth while chewing ice. He states 2 days ago he began having pain and noticed some swelling to the face. He denies any fever, nausea, vomiting, diarrhea, difficulty swallowing, difficulty breathing. Patient denies any past medical history. No allergies to medications. He states he has not seen a dentist in approximately over 20 years. - Related Data Home Medications Medication Instructions Recorded Confirmed Last Taken AtorvaSTATin [Lipitor] 40 mg PO QHS 05/22/19 05/22/19 Unknown Clopidogrel [Plavix] 75 mg PO QDAY 05/22/19 05/22/19 Unknown Gabapentin 100 mg PO TID 05/22/19 05/22/19 Unknown hydrALAZINE [Apresoline TAB] 25 mg PO TID 05/22/19 05/22/19 Unknown Previous Rx's Medication Instructions Recorded Last Taken Type Linagliptin [Tradjenta] 5 mg PO QDAY #30 tablet 05/24/19 Unknown Rx Pantoprazole [Protonix TAB] 40 mg PO DAILY #30 tablet 05/24/19 Unknown Rx oxyCODONE /ACETAMINOPHEN [Percocet 1 tab PO Q8H PRN #20 tablet 05/24/19 Unknown Rx 5/325 mg] Chlorhexidine Mouthwash [Peridex] 15 ml MM BID #1 bottle 04/11/21 Unknown Rx Ibuprofen [Motrin 600 MG tab] 600 mg PO Q8H PRN #20 tablet 04/11/21 Unknown Rx Penicillin Vk [Veetids TAB] 500 mg PO QID 7 Days #56 tablet 04/11/21 Unknown Rx Allergies Allergy/AdvReac Type Severity Reaction Status Date / Time No Known Allergies Allergy Verified 02/07/14 10:39 ED Dental HPI - General Chief complaint: Dental/Oral Stated complaint: DENTAL PAIN Time Seen by Provider: 04/11/21 11:24 Source: patient Mode of arrival: Ambulatory Limitations: No Limitations - Related Data Home Medications Medication Instructions Recorded Confirmed Last Taken AtorvaSTATin [Lipitor] 40 mg PO QHS 05/22/19 05/22/19 Unknown Clopidogrel [Plavix] 75 mg PO QDAY 05/22/19 05/22/19 Unknown Gabapentin 100 mg PO TID 05/22/19 05/22/19 Unknown hydrALAZINE [Apresoline TAB] 25 mg PO TID 05/22/19 05/22/19 Unknown Previous Rx's Medication Instructions Recorded Last Taken Type Linagliptin [Tradjenta] 5 mg PO QDAY #30 tablet 05/24/19 Unknown Rx Pantoprazole [Protonix TAB] 40 mg PO DAILY #30 tablet 05/24/19 Unknown Rx oxyCODONE /ACETAMINOPHEN [Percocet 1 tab PO Q8H PRN #20 tablet 05/24/19 Unknown Rx 5/325 mg] Chlorhexidine Mouthwash [Peridex] 15 ml MM BID #1 bottle 04/11/21 Unknown Rx Ibuprofen [Motrin 600 MG tab] 600 mg PO Q8H PRN #20 tablet 04/11/21 Unknown Rx Penicillin Vk [Veetids TAB] 500 mg PO QID 7 Days #56 tablet 04/11/21 Unknown Rx Allergies Allergy/AdvReac Type Severity Reaction Status Date / Time No Known Allergies Allergy Verified 02/07/14 10:39 ED Review of Systems ROS: Stated complaint: DENTAL PAIN Other details as noted in HPI Comment: All other systems reviewed and negative ED Past Medical Hx - Past Medical History Previous Medical History?: Yes Hx Hypertension: Yes Hx Heart Attack/AMI: No Hx Diabetes: Yes Hx GERD: Yes Hx Renal Disease: Yes Hx Asthma: No Additional medical history: Aortic Stenosis. hear murmur. PAD - Surgical History Past Surgical History?: Yes Hx Coronary Stent: Yes Hx Cholecystectomy: Yes Additional Surgical History: Graft in arm, Appendix - Social History Smoking Status: Never Smoker Substance Use Type: None - Medications Home Medications: Home Medications Medication Instructions Recorded Confirmed Last Taken Type AtorvaSTATin [Lipitor] 40 mg PO QHS 05/22/19 05/22/19 Unknown History Clopidogrel [Plavix] 75 mg PO QDAY 05/22/19 05/22/19 Unknown History Gabapentin 100 mg PO TID 05/22/19 05/22/19 Unknown History hydrALAZINE [Apresoline TAB] 25 mg PO TID 05/22/19 05/22/19 Unknown History Linagliptin [Tradjenta] 5 mg PO QDAY #30 tablet 05/24/19 Unknown Rx Pantoprazole [Protonix TAB] 40 mg PO DAILY #30 tablet 05/24/19 Unknown Rx oxyCODONE /ACETAMINOPHEN [Percocet 1 tab PO Q8H PRN #20 tablet 05/24/19 Unknown Rx 5/325 mg] Chlorhexidine Mouthwash [Peridex] 15 ml MM BID #1 bottle 04/11/21 Unknown Rx Ibuprofen [Motrin 600 MG tab] 600 mg PO Q8H PRN #20 tablet 04/11/21 Unknown Rx Penicillin Vk [Veetids TAB] 500 mg PO QID 7 Days #56 tablet 04/11/21 Unknown Rx ED Physical Exam - General Limitations: No Limitations General appearance: alert, in no apparent distress - Head Head exam: Present: atraumatic, normocephalic - Eye Eye exam: Present: normal appearance - ENT ENT exam: Present: normal orophraynx (no tongue elevation, no muffled voice ), mucous membranes moist, other (poor dentition, several dental carries/missing teeth, there is a cracked tooth present to the right frontal tooth, there is induration of the gumline, no fluctuance, mild edema to the left upper face, no erythema or induration of the face, uvula is midline, no uvular edema or deviation, no trismus) - Respiratory Respiratory exam: Absent: respiratory distress, accessory muscle use - Neurological Exam Neurological exam: Present: alert, oriented X3 - Psychiatric Psychiatric exam: Present: normal affect, normal mood - Skin Skin exam: Present: warm, dry, intact ED Course Vital Signs 04/11/21 09:24 Temperature 98.3 F Pulse Rate 70 Respiratory 20 Rate Blood Pressure 176/75 O2 Sat by Pulse 100 Oximetry ED Medical Decision Making - Medical Decision Making Patient is a 55-year-old male presents emergency room with complaints of upper dental pain that began 2 days ago. He states approximately 2 weeks ago he cracked his tooth while chewing ice. He states 2 days ago he began having pain and noticed some swelling to the face. He denies any fever, nausea, vomiting, diarrhea, difficulty swallowing, difficulty breathing. Patient denies any past medical history. No allergies to medications. He states he has not seen a dentist in approximately over 20 years. Vitals are stable. On exam:poor dentition, several dental carries/missing teeth, there is a cracked tooth present to the right frontal tooth, there is induration of the gumline, no fluctuance, mild edema to the left upper face, no erythema or induration of the face, uvula is midline, no uvular edema or deviation, no trismus, no tongue elevation, no muffled voice. Examination appears insistent with infected dental caries. Patient given prescription for medications. Discussed the importance of dental follow-up. Advised patient Please use medication as prescribed. Please follow-up with a dentist. It is very important that you follow-up with a dentist. Return to emergency room for new or worsening symptoms. Critical care attestation.: If time is entered above; I have spent that time in minutes in the direct care of this critically ill patient, excluding procedure time. ED Disposition Clinical Impression: Infected dental caries, Cracked tooth Disposition: TO HOME OR SELFCARE Is pt being admited?: No Does the pt Need Aspirin: No Condition: Stable Additional Instructions: Please use medication as prescribed. Please follow-up with a dentist. It is very important that you follow-up with a dentist. Return to emergency room for new or worsening symptoms. Prescriptions: Ibuprofen [Motrin 600 MG tab] 600 mg PO Q8H PRN #20 tablet PRN Reason: Pain Chlorhexidine Mouthwash [Peridex] 15 ml MM BID #1 bottle Penicillin Vk [Veetids TAB] 500 mg PO QID 7 Days #56 tablet Referrals: BELLO JACOB MD [Primary Care Provider] - 2-3 Days [facility] [Outside] - 2-3 Days [facility] [Outside] - 2-3 Days Time of Disposition: 11:31 Print Language: MAORI
== END 2021-04-11 12:40 | disposition home or self-care (01) ==
LOC: ED 08:51
DX: K02.9 Dental caries, unspecified (principal); K03.81 Cracked tooth; I10 Essential (primary) hypertension; E11.9 Type 2 diabetes mellitus without complications; K21.9 Gastro-esophageal reflux disease without esophagitis; Z90.49 Acquired absence of other specified parts of digestive tract; Z98.890 Other specified postprocedural states; Z79.1 Long term (current) use of non-steroidal anti-inflammatories (NSAID); Z79.899 Other long term (current) drug therapy
CPT/HCPCS: 99282

== ENCOUNTER 2021-11-21 10:30 | Emergency (ER) | payer MEDICARE ==
[2021-11-21 10:38] VITALS: BP 134/58
--- NOTE | 2021-11-21 11:23 | Emergency Department Report ---
ED Fall HPI - General Chief Complaint: Fall Stated Complaint: BROKEN LFT ANKEL Time Seen by Provider: 11/21/21 10:40 Source: patient Mode of arrival: Wheelchair - History of Present Illness Initial Comments: Patient is a 56-year-old male presents emergency room complaints of a fall that occurred last night. Patient states that he was walking with his walker in his kitchen and states that his ankle gave out. He states he has been experiencing left ankle and left foot pain. Patient states he has had episodes with his legs giving out for some time and that is why he walks with a walker and he reports he has a history of neuropathy. He denies any prior fracture or surgery of this ankle or foot. he denies any CP, SOB, or dizziness prior to the fall. Past medical history of diabetes and diabetic neuropathy, CHF, ESRD on dialysis, aortic stenosis, PAD. No allergies to medications. - Related Data Home Medications Medication Instructions Recorded Confirmed Last Taken AtorvaSTATin [Lipitor] 40 mg PO QHS 05/22/19 05/22/19 Unknown Clopidogrel [Plavix] 75 mg PO QDAY 05/22/19 05/22/19 Unknown hydrALAZINE [Apresoline TAB] 25 mg PO TID 05/22/19 05/22/19 Unknown Previous Rx's Medication Instructions Recorded Last Taken Type Linagliptin [Tradjenta] 5 mg PO QDAY #30 tablet 05/24/19 Unknown Rx Pantoprazole [Protonix TAB] 40 mg PO DAILY #30 tablet 05/24/19 Unknown Rx oxyCODONE /ACETAMINOPHEN [Percocet 1 tab PO Q8H PRN #20 tablet 05/24/19 Unknown Rx 5/325 mg] Chlorhexidine Mouthwash [Peridex] 15 ml MM BID #1 bottle 04/11/21 Unknown Rx Ibuprofen [Motrin 600 MG tab] 600 mg PO Q8H PRN #20 tablet 04/11/21 Unknown Rx Penicillin Vk [Veetids TAB] 500 mg PO QID 7 Days #56 tablet 04/11/21 Unknown Rx Acetaminophen [Tylenol] 650 mg PO Q8HR PRN #20 cap 11/21/21 Unknown Rx Gabapentin 100 mg PO TID #21 cap 11/21/21 Unknown Rx Allergies Allergy/AdvReac Type Severity Reaction Status Date / Time No Known Allergies Allergy Verified 02/07/14 10:39 ED Review of Systems ROS: Stated complaint: BROKEN LFT ANKEL Other details as noted in HPI Comment: All other systems reviewed and negative ED Past Medical Hx - Past Medical History Previous Medical History?: Yes Hx Hypertension: Yes Hx Heart Attack/AMI: No Hx Diabetes: Yes Hx GERD: Yes Hx Renal Disease: Yes Hx Asthma: No Additional medical history: Aortic Stenosis. hear murmur. PAD - Surgical History Past Surgical History?: Yes Hx Coronary Stent: Yes Hx Cholecystectomy: Yes Additional Surgical History: Graft in arm, Appendix - Social History Smoking Status: Never Smoker Substance Use Type: None - Medications Home Medications: Home Medications Medication Instructions Recorded Confirmed Last Taken Type AtorvaSTATin [Lipitor] 40 mg PO QHS 05/22/19 05/22/19 Unknown History Clopidogrel [Plavix] 75 mg PO QDAY 05/22/19 05/22/19 Unknown History hydrALAZINE [Apresoline TAB] 25 mg PO TID 05/22/19 05/22/19 Unknown History Linagliptin [Tradjenta] 5 mg PO QDAY #30 tablet 05/24/19 Unknown Rx Pantoprazole [Protonix TAB] 40 mg PO DAILY #30 tablet 05/24/19 Unknown Rx oxyCODONE /ACETAMINOPHEN [Percocet 1 tab PO Q8H PRN #20 tablet 05/24/19 Unknown Rx 5/325 mg] Chlorhexidine Mouthwash [Peridex] 15 ml MM BID #1 bottle 04/11/21 Unknown Rx Ibuprofen [Motrin 600 MG tab] 600 mg PO Q8H PRN #20 tablet 04/11/21 Unknown Rx Penicillin Vk [Veetids TAB] 500 mg PO QID 7 Days #56 tablet 04/11/21 Unknown Rx Acetaminophen [Tylenol] 650 mg PO Q8HR PRN #20 cap 11/21/21 Unknown Rx Gabapentin 100 mg PO TID #21 cap 11/21/21 Unknown Rx ED Physical Exam - General Limitations: No Limitations General appearance: alert, in no apparent distress - Head Head exam: Present: atraumatic, normocephalic - Eye Eye exam: Present: normal appearance - ENT ENT exam: Present: mucous membranes moist - Extremities Exam Extremities exam: Present: other (ttp to the left lateral ankle and left lateral foot, FROM, dp and pt pulse present on bedside doppler, pt is able to feel light touch and firm touch) - Neurological Exam Neurological exam: Present: alert, oriented X3 - Psychiatric Psychiatric exam: Present: normal affect, normal mood - Skin Skin exam: Present: warm, dry, intact ED Course Vital Signs 11/21/21 10:35 Temperature 97.9 F Pulse Rate 61 Respiratory 20 Rate Blood Pressure 134/58 [Right] O2 Sat by Pulse 99 Oximetry ED Medical Decision Making - Radiology Data Radiology results: report reviewed Ordering Physician: LULY TORIBIO Date of Service: 11/21/21 Procedure(s): XR foot 3+V LT Accession Number(s): [id number] cc: LULY TORIBIO Fluoro Time In Minutes: LEFT ANKLE 3 VIEWS 1107 INDICATION: fall, left ankle/foot pain COMPARISON: 01/23/2017 FINDINGS: Mild lateral soft tissue swelling is seen. Minimal inferior and mild posterior calcaneal spurring is noted. Mild tarsal degenerative changes are seen. No fractures or dislocations are noted. LEFT FOOT 3 VIEWS 1108 INDICATION: fall, left ankle/foot pain COMPARISON: None available. FINDINGS: Minimal inferior and mild posterior calcaneal spurring are seen. Mild tarsal degenerative changes are noted. Moderate arterial calcifications are seen. No fractures or dislocations are noted. No foreign bodies are seen. Signer Name: Iraj Monzon MD Signed: 11/21/2021 11:28 AM Workstation Name: [id number] Transcribed By: GJ Dictated By: Iraj Monzon MD Electronically Authenticated By: Iraj Monzon MD Signed Date/Time: 11/21/21 1128 DD/ 1125 TD/TT: - Medical Decision Making Patient is a 56-year-old male presents emergency room complaints of a fall that occurred last night. Patient states that he was walking with his walker in his kitchen and states that his ankle gave out. He states he has been experiencing left ankle and left foot pain. Patient states he has had episodes with his legs giving out for some time and that is why he walks with a walker and he reports he has a history of neuropathy. He denies any prior fracture or surgery of this ankle or foot. he denies any CP, SOB, or dizziness prior to the fall. Past medical history of diabetes and diabetic neuropathy. No allergies to medications. Vitals are normal. On exam:ttp to the left lateral ankle and left lateral foot, FROM, dp and pt pulse present on bedside doppler, pt is able to feel light touch and firm touch. XR left ankle: Mild lateral soft tissue swelling is seen. Minimal inferior and mild posterior calcaneal spurring is noted. Mild tarsal degenerative changes are seen. No fractures or dislocations are noted. XR left foot: Minimal inferior and mild posterior calcaneal spurring are seen. Mild tarsal degenerativechanges are noted. Moderate arterial calcifications are seen. No fractures or dislocations are noted. No foreign bodies are seen. Symptoms and examination likely consistent with ankle sprain. Patient placed in ankle stirrup splint. Patient already walks with a walker. Due to history of PAD with moderate arterial calcifications on x-ray, patient will be referred to vascular surgery, no signs of acute emergent arterial occlusion at this time, there are pulses present on bedside Doppler. pt has been worked up in the emergency room previously in 2019 due to his left ankle giving out, he states he was advised that it could be due to his neuropathy or arthritis. he has 5/5 strength on exam and is able to push against resistance with his left foot. Discussed all findings with patient and the importance of outpatient follow up. discussed strict return precautions. Advised patient please follow-up with your primary care doctor. may use ice for 15 minutes at a time, rest, elevation of the leg. Please follow-up with orthopedic doctor. Please follow-up with a vascular doctor. Return to emergency room for any new or worsening symptoms. Critical care attestation.: If time is entered above; I have spent that time in minutes in the direct care of this critically ill patient, excluding procedure time. ED Disposition Clinical Impression: Arthritis of left ankle, Arthritis of left foot, PAD (peripheral artery disease) Left ankle sprain Qualifiers: Encounter type: initial encounter Involved ligament of ankle: unspecified ligament Qualified Code(s): S93.402A - Sprain of unspecified ligament of left ankle, initial encounter Disposition: HOME / SELF CARE / HOMELESS Is pt being admited?: No Does the pt Need Aspirin: No Condition: Stable Instructions: Osteoarthritis, Ankle Sprain, Peripheral Vascular Disease Additional Instructions: please take medication as prescribed. may use ice for 15 minutes at a time, rest, elevation of the leg. patient please follow-up with your primary care doctor. Please follow-up with orthopedic doctor. Please follow-up with a vascular doctor. Return to emergency room for any new or worsening symptoms. Prescriptions: Gabapentin 100 mg PO TID #21 cap Acetaminophen [Tylenol] 650 mg PO Q8HR PRN #20 cap PRN Reason: pain Referrals: PRIMARY CARE, [Primary Care Provider] - 3-5 Days WANDY IRELAND MD [Staff Physician] - 3-5 Days [facility] [Provider Group] - 3-5 Days Time of Disposition: 11:48 Print Language: SPANISH
--- NOTE | 2021-11-21 11:32 | XRay Report ---
LEFT ANKLE 3 VIEWS 1107 INDICATION: fall, left ankle/foot pain COMPARISON: 01/23/2017 FINDINGS: Mild lateral soft tissue swelling is seen. Minimal inferior and mild posterior calcaneal sp urring is noted. Mild tarsal degenerative changes are seen. No fractures or dislocations are noted. LEFT FOOT 3 VIEWS 1108 INDICATION: fall, left ankle/foot pain COMPARISON: None available. FINDINGS: Minimal inferior and mild posterior calcaneal spurring are seen. Mild tarsal degenerative c hanges are noted. Moderate arterial calcifications are seen. No fractures or dislocations are noted. No foreign bodies are seen. Signer Name: Iraj Monzon MD Signed: 11/21/2021 11:28 AM Workstation Name: [id number]
== END 2021-11-21 12:20 | disposition home or self-care (01) ==
LOC: ED 10:30
DX: S93.402A Sprain of unspecified ligament of left ankle, initial encounter (principal); I73.9 Peripheral vascular disease, unspecified; M19.072 Primary osteoarthritis, left ankle and foot; I10 Essential (primary) hypertension; E11.9 Type 2 diabetes mellitus without complications; K21.9 Gastro-esophageal reflux disease without esophagitis; N28.9 Disorder of kidney and ureter, unspecified; Z90.49 Acquired absence of other specified parts of digestive tract; Z79.899 Other long term (current) drug therapy; Z98.890 Other specified postprocedural states; W19.XXXA Unspecified fall, initial encounter; Y93.89 Activity, other specified; Y92.090 Kitchen in other non-institutional residence as the place of occurrence of the external cause; Y99.8 Other external cause status
CPT/HCPCS: 99283